=== PATIENT | female | born 1970 | race Caucasian/White ===

== ENCOUNTER 2017-08-20 14:24 | Emergency (ER) | payer BC, SELFPAY ==
[2017-08-20 15:00] VITALS: PULSE 103; RESP 16; TEMP 36.9; O2SAT 97; BMI 30.7
[2017-08-21 00:21] LABS: UTC Influenza A Antigen Negative (Negative); UTC Influenza B Antigen Positive (Negative)
== END 2017-08-20 20:55 | disposition home or self-care (01) ==
PROVIDERS: Emergency Provider Physician Assistant; Family Provider Internal Medicine Adolescent Medicine; PCP Internal Medicine Adolescent Medicine
DX: J11.1 Influenza due to unidentified influenza virus with other respiratory manifestations (principal)
CPT/HCPCS: 87276; 87804; 99202

== ENCOUNTER → 2017-09-14 10:29 | Outpatient (CLI) | payer BC, SELFPAY ==
[2017-09-14 11:46] LABS: Free T4 (Free Thyroxine) 1.51 ng/dl (0.76-1.46)
== END ==
PROVIDERS: PCP Internal Medicine Adolescent Medicine; Visit Provider Internal Medicine Endocrinology, Diabetes & Metabolism
DX: E03.9 Hypothyroidism, unspecified (principal)
CPT/HCPCS: 36415; 84439; 84443

== ENCOUNTER → 2017-11-01 09:01 | Outpatient (CLI) | payer BC, SELFPAY ==
[2017-11-01 09:52] LABS: Hemoglobin A1C 6.3 % (0.0-7.0)
[2017-11-01 09:57] LABS: Alanine Aminotransferase 92 U/L (12-78); Albumin Level 4.2 gm/dL (3.4-5.0); Albumin/Globulin Ratio 1.1 (1.1-1.8); Alkaline Phosphatase 107 U/L (46-116); Anion Gap 15.2 mEq/L (5-15); Aspartate Amino Transferase 50 U/L (15-37); Bilirubin,Total 0.5 mg/dL (0.2-1.0); Blood Urea Nitrogen 9 mg/dL (7-18); Calcium 9.1 mg/dL (8.5-10.1); Carbon Dioxide 27 mmol/L (21.0-32.0); Chloride 100 mmol/L (98-107); Creatinine,Serum 0.74 mg/dL (0.55-1.02); Estimated Glomerular Filt Rate 84 ml/min (>60); GFR (African American) 102 ML/MIN (>60); Globulin 3.7 gm/dl (1.3-3.2); Glucose 148 mg/dL (74-106); Potassium 3.2 mmoL/L (3.5-5.1); Sodium 139 mmol/L (136-145); Total Protein,Serum 7.9 gm/dL (6.4-8.2)
== END ==
PROVIDERS: Visit Provider Internal Medicine Adolescent Medicine
DX: E11.9 Type 2 diabetes mellitus without complications (principal)
CPT/HCPCS: 36415; 80053; 83036

== ENCOUNTER → 2017-11-17 17:16 | Outpatient (CLI) | payer BC, SELFPAY ==
[2017-11-17 19:01] LABS: Free T4 (Free Thyroxine) 1.16 ng/dl (0.76-1.46); Thyroid Stimulating Hormone 0.45 uIU/ml (0.358-3.740)
== END ==
PROVIDERS: Visit Provider Internal Medicine Endocrinology, Diabetes & Metabolism
DX: E03.9 Hypothyroidism, unspecified (principal)
CPT/HCPCS: 36415; 84439; 84443

== ENCOUNTER → 2017-12-13 09:13 | Outpatient (CLI) | payer BC, SELFPAY ==
[2017-12-13 10:19] LABS: Basophils # 0.1 K/mm3 (0-0.2); Basophils % 0.6 % (0.1-2.0); Eosinophils # 0.2 K/mm3 (0.0-0.4); Eosinophils % 2.2 % (0.1-12.0); Hematocrit 44.8 % (37.0-47.0); Hemoglobin 15.3 g/dL (12.2-16.2); Lymphocytes # 3.8 K/mm3 (0.7-4.5); Mean Corpuscular HGB Conc 34.2 g/dL (31.8-35.4); Mean Corpuscular Hemoglobin 30.4 pg (27.0-31.2); Mean Corpuscular Volume 88.8 fl (81-99); Monocytes # 0.5 K/mm3 (0.1-1.0); Monocytes % 5.4 % (1.7-9.3); Neutrophils # 4.1 K/mm3 (1.8-7.8); Neutrophils % 47.8 % (37.0-80.0); Platelet Count 261 K/mm3 (142-424); Red Blood Count 5.05 M/mm3 (4.20-5.40); Red Cell Distribution Width 12.7 % (11.5-17.5); White Blood Count 8.6 K/mm3 (4.8-10.8)
[2017-12-13 11:05] LABS: Anion Gap 12.5 mEq/L (5-15); Blood Urea Nitrogen 12 mg/dL (7-18); Carbon Dioxide 31 mmol/L (21.0-32.0); Chloride 99 mmol/L (98-107); Creatinine,Serum 0.82 mg/dL (0.55-1.02); Estimated Glomerular Filt Rate 75 ml/min (>60); Ferritin 183 ng/mL (8-388); GFR (African American) 91 ML/MIN (>60); Glucose 158 mg/dL (74-106); Potassium 3.5 mmoL/L (3.5-5.1); Sodium 139 mmol/L (136-145)
[2017-12-14 14:50] LABS: Folate 17.8 ng/mL (>3.0); Vitamin B12 784 pg/mL (232-1245)
== END ==
PROVIDERS: Visit Provider Nurse Practitioner Family
DX: R53.81 Other malaise (principal); R20.2 Paresthesia of skin
CPT/HCPCS: 36415; 80048; 82607; 82728; 82746; 85025

== ENCOUNTER → 2018-03-13 12:05 | Outpatient (CLI) | payer BC, SELFPAY ==
[2018-03-13 16:11] LABS: Free T4 (Free Thyroxine) 1.33 ng/dl (0.76-1.46); Thyroid Stimulating Hormone 1.94 uIU/ml (0.358-3.740)
== END ==
PROVIDERS: Visit Provider Internal Medicine Endocrinology, Diabetes & Metabolism
DX: E03.9 Hypothyroidism, unspecified (principal)
CPT/HCPCS: 36415; 84439; 84443

== ENCOUNTER → 2018-05-17 09:36 | Outpatient (CLI) | payer BC, SELFPAY ==
[2018-05-17 10:02] LABS: Basophils # 0.1 K/mm3 (0-0.2); Basophils % 0.8 % (0.1-2.0); Eosinophils # 0.2 K/mm3 (0.0-0.4); Hematocrit 43.4 % (37.0-47.0); Hemoglobin 14.3 g/dL (12.2-16.2); Lymphocytes % 39.5 K/mm3 (10-50); Mean Corpuscular HGB Conc 32.9 g/dL (31.8-35.4); Mean Corpuscular Volume 91.2 fl (81-99); Mean Platelet Volume 7.4 fl (7.4-10.4); Monocytes # 0.4 K/mm3 (0.1-1.0); Monocytes % 5.5 % (1.7-9.3); Neutrophils # 3.9 K/mm3 (1.8-7.8); Neutrophils % 51.3 % (37.0-80.0); Platelet Count 246 K/mm3 (142-424); Red Blood Count 4.76 M/mm3 (4.20-5.40); Red Cell Distribution Width 12.4 % (11.5-17.5); White Blood Count 7.6 K/mm3 (4.8-10.8)
[2018-05-17 10:39] LABS: Alanine Aminotransferase 76 U/L (12-78); Albumin Level 3.8 gm/dL (3.4-5.0); Albumin/Globulin Ratio 1.1 (1.1-1.8); Alkaline Phosphatase 107 U/L (46-116); Anion Gap 14.1 mEq/L (5-15); Aspartate Amino Transferase 37 U/L (15-37); Bilirubin,Total 0.5 mg/dL (0.2-1.0); Blood Urea Nitrogen 8 mg/dL (7-18); Carbon Dioxide 26 mmol/L (21.0-32.0); Chloride 104 mmol/L (98-107); Chol/HDL Ratio 5.5 (1-3.5); Cholesterol 213 mg/dL (140-200); Creatinine,Serum 0.78 mg/dL (0.55-1.02); Estimated Glomerular Filt Rate 79 ml/min (>60); Free Thyroxine Index 4.1 ug/dL (5.93-13.13); GFR (African American) 96 ML/MIN (>60); Globulin 3.4 gm/dl (1.3-3.2); Glucose 145 mg/dL (74-106); HDL Cholesterol 39 mg/dL (29-89); LDL Cholesterol 117 mg/dL (0-130); Potassium 4.1 mmoL/L (3.5-5.1); Sodium 140 mmol/L (136-145); T4 (Thyroxine) 11.4 ug/dl (4.7-13.3); Thyroid Stimulating Hormone 2.75 uIU/ml (0.358-3.740); Total Protein,Serum 7.2 gm/dL (6.4-8.2); Triglycerides 287 mg/dL (30-200); Triiodothryronine (T3) Uptake 36 % (31-39); VLDL Cholesterol 57 mg/dL (0-40)
[2018-05-18 17:27] LABS: Estradiol 116.9 pg/mL (.); FSH 7.3 mIU/mL (.); LH 14.9 mIU/mL (.)
[2018-05-18 17:30] LABS: Vitamin D 25 Hydroxy 27.5 ng/mL (30.0-100.0)
== END ==
PROVIDERS: PCP Internal Medicine Adolescent Medicine; Visit Provider Nurse Practitioner Obstetrics & Gynecology
DX: Z01.419 Encounter for gynecological examination (general) (routine) without abnormal findings (principal); N95.1 Menopausal and female climacteric states; E03.9 Hypothyroidism, unspecified
CPT/HCPCS: 36415; 80053; 80061; 82652; 82670; 83001; 83002; 84436; 84443; 84479; 85025

== ENCOUNTER → 2018-05-17 09:53 | Outpatient (CLI) | payer BC, SELFPAY | PROVIDERS: Family Provider Internal Medicine Adolescent Medicine; PCP Internal Medicine Adolescent Medicine; Visit Provider Family Medicine | DX: E11.9 Type 2 diabetes mellitus without complications (principal) | CPT/HCPCS: 97802 ==

== ENCOUNTER → 2018-07-30 12:51 | Outpatient (CLI) | payer BC, SELFPAY ==
--- NOTE | 2018-07-30 12:58 | CT_ITS ---
CT abdomen pelvis w con INDICATION: A left upper quadrant pain for years ITS.REASON: LLQ PAIN ORDERING PHYSICIAN: Leandro Rapp MD PATIENT AGE: 48 years COMPARISON: PROCEDURE: Oral Contrast: Enteric contrast was utilized. IV Contrast: 75 cc Isovue-370 IV. TECHNIQUE: Axial images obtained with sagittal and coronal reformats. All CT scans at the facility use one or more dose reduction, viz: automated exposure control, ma/kV adjustment per patient size (including targeted exams where dose is matched to indication, i.e. head), or iterative reconstruction technique. FINDINGS: The lung bases appear clear. No acute findings. Heart normal size. Liver appears normal. Gallbladder is been removed. No biliary ductal dilatation. Pancreas is moderate size throughout but no focal lesions. No significant change since 2013. The common duct is slightly generous upper normal size but this reflects postcholecystectomy changes. Kidneys. No urinary tract calculi nor obstruction. Normal enhancement. Ureters unremarkable. GI tract. Moderate stool seen throughout the colon. Diverticulosis most evident at the sigmoid colon. There are areas of upper normal wall thickness in the proximal sigmoid colon. Most likely likely lack of distention. But noted no acute diverticulitis evident. No free fluid in the abdomen or pelvis. No free air. The appendix is identified and appears normal at right lower quadrant. Osseous. Lower ribs appear intact. Lumbar spine intact with mild degenerative changes L5/S1. Thecal spurring and central disc bulge at that level. Mild facet hypertrophy. Pelvis. Uterus is been removed since 2013. Stranding and Numerous clips are seen at the pelvic basin. Likely reflect postsurgical change. I suspect the right ovary remains and most likely accounts for the 3 cm x 2 cm density at the superior right pelvis. Coronal image 45. There are some ring-enhancing areas here which likely reflect enhancing cyst.. The largest 15 mm size. Axial image 104 . IMPRESSION: 1. No acute findings abdomen nor pelvis 2. Diverticulosis most evident at the sigmoid colon and left colon. No diverticulitis.. Upper normal wall thickness descending colon and sigmoid most likely reflecting lack of distention 3. No findings at the left abdomen to account for the left upper quadrant pain.. 4.. Uterus is been removed since 2013.. . Right ovary appears to remain measuring up to 3 cm applied to the right superior right pelvic sidewall. This moderate size right ovary containing ring-enhancing areas which are most likely enhancing follicular cyst.. Largest rim-enhancing cyst measuring 1.5 cm. If f pain at right pelvis consider ultrasound 5. Appendix normal. Cholecystectomy. .
[2018-07-30 13:09] LABS: Blood Urea Nitrogen 11 mg/dL (7-18); Creatinine,Serum 0.84 mg/dL (0.55-1.02); Estimated Glomerular Filt Rate 73 ml/min (>60); GFR (African American) 88 ML/MIN (>60)
== END ==
PROVIDERS: Visit Provider Family Medicine
DX: R10.32 Left lower quadrant pain (principal)
CPT/HCPCS: 36415; 74177; 82565; 84520; Q9967

== ENCOUNTER → 2018-08-21 12:00 | Outpatient (CLI) | payer BC, SELFPAY ==
[2018-08-21 13:47] LABS: Alanine Aminotransferase 94 U/L (12-78); Albumin Level 3.8 gm/dL (3.4-5.0); Albumin/Globulin Ratio 1.2 (1.1-1.8); Alkaline Phosphatase 105 U/L (46-116); Anion Gap 13.8 mEq/L (5-15); Aspartate Amino Transferase 55 U/L (15-37); Bilirubin,Total 0.7 mg/dL (0.2-1.0); Blood Urea Nitrogen 6 mg/dL (7-18); Calcium 8.5 mg/dL (8.5-10.1); Carbon Dioxide 24 mmol/L (21.0-32.0); Chloride 103 mmol/L (98-107); Chol/HDL Ratio 5.7 (1-3.5); Cholesterol 216 mg/dL (140-200); Creatinine,Serum 0.77 mg/dL (0.55-1.02); Estimated Glomerular Filt Rate 80 ml/min (>60); Free Thyroxine Index 4.2 ug/dL (5.93-13.13); GFR (African American) 97 ML/MIN (>60); Globulin 3.3 gm/dl (1.3-3.2); Glucose 157 mg/dL (74-106); HDL Cholesterol 38 mg/dL (29-89); LDL Cholesterol 109 mg/dL (0-130); Potassium 3.8 mmoL/L (3.5-5.1); Sodium 137 mmol/L (136-145); T4 (Thyroxine) 11.4 ug/dl (4.7-13.3); Thyroid Stimulating Hormone 0.05 uIU/ml (0.358-3.740); Total Protein,Serum 7.1 gm/dL (6.4-8.2); Triglycerides 344 mg/dL (30-200); Triiodothryronine (T3) Uptake 37 % (31-39); VLDL Cholesterol 69 mg/dL (0-40)
[2018-08-21 14:23] LABS: Basophils # 0.1 K/mm3 (0-0.2); Basophils % 0.9 % (0.1-2.0); Eosinophils # 0.2 K/mm3 (0.0-0.4); Eosinophils % 3.2 % (0.1-12.0); Hematocrit 41.8 % (37.0-47.0); Hemoglobin 14.1 g/dL (12.2-16.2); Lymphocytes # 2.3 K/mm3 (0.7-4.5); Lymphocytes % 35.3 % (10-50); Mean Corpuscular HGB Conc 33.7 g/dL (31.8-35.4); Mean Corpuscular Volume 88.9 fl (81-99); Mean Platelet Volume 8.1 fl (7.4-10.4); Monocytes # 0.4 K/mm3 (0.1-1.0); Monocytes % 6.6 % (1.7-9.3); Neutrophils # 3.4 K/mm3 (1.8-7.8); Neutrophils % 53.9 % (37.0-80.0); Platelet Count 215 K/mm3 (142-424); Red Blood Count 4.71 M/mm3 (4.20-5.40); Red Cell Distribution Width 12.4 % (11.5-17.5); White Blood Count 6.4 K/mm3 (4.8-10.8)
[2018-08-22 10:32] LABS: Triiodothyronine (T3) Free 3.2 pg/mL (2.0-4.4)
[2018-08-22 19:56] LABS: Ferritin 271 ng/mL (8-388)
[2018-08-24 08:30] LABS: Iron 102 ug/dL (27-159); UIBC 244 ug/dL (131-425)
[2018-08-24 18:06] LABS: Iron Saturation 29 % (15-55)
== END ==
PROVIDERS: Visit Provider Nurse Practitioner Obstetrics & Gynecology
DX: D64.9 Anemia, unspecified (principal); E03.9 Hypothyroidism, unspecified; R53.82 Chronic fatigue, unspecified
CPT/HCPCS: 80053; 80061; 82728; 83540; 83550; 84436; 84443; 84479; 84481; 85025

== ENCOUNTER → 2018-08-22 18:32 | Outpatient (CLI) | payer BC, SELFPAY | PROVIDERS: Visit Provider Nurse Practitioner Obstetrics & Gynecology | DX: D64.9 Anemia, unspecified (principal); E03.9 Hypothyroidism, unspecified; R53.82 Chronic fatigue, unspecified | CPT/HCPCS: 82728; 83540; 83550 ==

== ENCOUNTER → 2018-10-22 15:50 | Outpatient (POV) | payer OTHER, BC, SELFPAY | PROVIDERS: Visit Provider Nurse Practitioner Acute Care | DX: Z00.00 Encounter for general adult medical examination without abnormal findings (principal) ==

== ENCOUNTER → 2018-11-14 12:51 | Outpatient (CLI) | payer BC, SELFPAY ==
[2018-11-14 14:23] LABS: Free Thyroxine Index 5.7 ug/dL (5.93-13.13); T4 (Thyroxine) 13.9 ug/dl (4.7-13.3); Thyroid Stimulating Hormone 0.01 uIU/ml (0.358-3.740); Triiodothryronine (T3) Uptake 41 % (31-39)
[2018-11-15 15:07] LABS: Triiodothyronine (T3) Free 4.6 pg/mL (2.0-4.4)
== END ==
PROVIDERS: Visit Provider Nurse Practitioner Obstetrics & Gynecology
DX: R53.82 Chronic fatigue, unspecified (principal)
CPT/HCPCS: 36415; 84436; 84443; 84479; 84481

== ENCOUNTER → 2019-03-22 14:38 | Outpatient (CLI) | payer BC, SELFPAY ==
--- NOTE | 2019-03-22 14:41 | XR_ITS ---
XR KUB HISTORY: ITS.REASON: RT FLANK PAIN ORDERING PHYSICIAN: Leandro Rapp MD PATIENT AGE: 49 years COMPARISON: None FINDINGS: The bowel gas pattern is unremarkable. No obvious obstruction.. Multiple pelvic calcifications are present most of which are likely related to phleboliths.. There is a small density overlying the upper and mid aspect of the right kidney at 2 mm and could represent a small stone. There are surgical clips in the right upper quadrant. IMPRESSION: Multiple pelvic calcifications which are nonspecific. Possible right nephrolithiasis
== END ==
PROVIDERS: PCP Family Medicine; Visit Provider Family Medicine
DX: R10.9 Unspecified abdominal pain (principal)
CPT/HCPCS: 74018

== ENCOUNTER → 2019-06-27 10:22 | Outpatient (CLI) | payer BC, SELFPAY ==
[2019-06-27 11:25] LABS: Basophils % 0.5 % (0.1-2.0); Eosinophils # 0.2 K/mm3 (0.0-0.4); Eosinophils % 2.2 % (0.1-12.0); Hematocrit 44.3 % (37.0-47.0); Hemoglobin 14.9 g/dL (12.2-16.2); Lymphocytes # 2.8 K/mm3 (0.7-4.5); Lymphocytes % 32.5 % (10-50); Mean Corpuscular HGB Conc 33.6 g/dL (31.8-35.4); Mean Corpuscular Hemoglobin 29.9 pg (27.0-31.2); Mean Corpuscular Volume 88.9 fl (81-99); Mean Platelet Volume 8.3 fl (7.4-10.4); Monocytes # 0.5 K/mm3 (0.1-1.0); Monocytes % 5.6 % (1.7-9.3); Neutrophils % 59.4 % (37.0-80.0); Platelet Count 244 K/mm3 (142-424); Red Blood Count 4.98 M/mm3 (4.20-5.40); Red Cell Distribution Width 12.4 % (11.5-17.5); White Blood Count 8.5 K/mm3 (4.8-10.8)
[2019-06-27 14:03] LABS: Alanine Aminotransferase 67 U/L (12-78); Albumin Level 3.9 gm/dL (3.4-5.0); Albumin/Globulin Ratio 1.1 (1.1-1.8); Alkaline Phosphatase 169 U/L (46-116); Aspartate Amino Transferase 28 U/L (15-37); Bilirubin,Total 0.6 mg/dL (0.2-1.0); Blood Urea Nitrogen 11 mg/dL (7-18); Carbon Dioxide 23 mmol/L (21.0-32.0); Chloride 102 mmol/L (98-107); Chol/HDL Ratio 5.1 (1-3.5); Cholesterol 197 mg/dL (140-200); Creatinine,Serum 0.67 mg/dL (0.55-1.02); Estimated Glomerular Filt Rate 94 ml/min (>60); Free Thyroxine Index 5.6 ug/dL (5.93-13.13); GFR (African American) 114 ML/MIN (>60); Globulin 3.4 gm/dl (1.3-3.2); Glucose 184 mg/dL (74-106); HDL Cholesterol 39 mg/dL (29-89); LDL Cholesterol 86 mg/dL (0-130); Sodium 136 mmol/L (136-145); T4 (Thyroxine) 14.8 ug/dl (4.7-13.3); Thyroid Stimulating Hormone 0.01 uIU/ml (0.358-3.740); Total Protein,Serum 7.3 gm/dL (6.4-8.2); Triglycerides 359 mg/dL (30-200); Triiodothryronine (T3) Uptake 38 % (31-39); VLDL Cholesterol 72 mg/dL (0-40)
[2019-06-28 21:14] LABS: Estradiol 204.4 pg/mL (.); FSH 6.8 mIU/mL (.); Triiodothyronine (T3) Free 4.2 pg/mL (2.0-4.4); Vitamin D 25 Hydroxy 21.7 ng/mL (30.0-100.0)
== END ==
PROVIDERS: Visit Provider Nurse Practitioner Obstetrics & Gynecology
DX: Z01.419 Encounter for gynecological examination (general) (routine) without abnormal findings (principal); E03.9 Hypothyroidism, unspecified; N95.1 Menopausal and female climacteric states; E55.9 Vitamin D deficiency, unspecified
CPT/HCPCS: 36415; 80053; 80061; 82652; 82670; 83001; 83002; 84436; 84443; 84479; 84481; 85025

== ENCOUNTER → 2019-07-22 06:15 | Outpatient (CLI) | payer BC, SELFPAY ==
--- NOTE | 2019-07-22 | CA_ITS ---
APPROVED REPORT Exam: Exercise Treadmill Technologist: Carmina Carney Ht: 5 ft 7 in Wt: 206 lbs BSA: 2.05 m2 HR: 74 bpm BP: 145/93 mmHg Indications: Abnormal ekg, Chest pain Medical History Medications: Levothyroxine,,,,, Diabetes med,,,,, Stress Test Details Test: Henrry HR Resting HR: 76 bpm Max Heart Rate (APMHR): 172 bpm Max HR Achieved: 154 bpm Target HR (85% APMHR): 146 bpm % of APMHR: 89 Recovery HR: 91 bpm BP Resting BP: 145.0/93.0 mmHg Max BP: 150.0/88.0 mmHg Recovery BP: 143.0/79.0 mmHg ECG Clinical Reason for Termination: Dyspnea Exercise duration: 09:00 min Highest Stage Achieved: Exercise capacity: 10.1 METs Stress ECG Conclusion patient exercised on a Henrry Protocol for 9 minutes to peak heart rate of 154 bpm ( target heart rate 146 bpm) without chest pain or arrhythmias. Baseline EKG is sinus with inferior STT abnormalities that were that were mildly exacerbated during stress before returning to baseline in recovery. Total METS acheived was 10.1 with peak blood pressure 161/88 mmHg. See the nuclear report for further information. Test Summary RECOVERY 04:00 0.0 0.0 100 . . . . REST . . . . . . . Standing REST 13:38 0.0 0.0 76 . 145/ 93 . . Stage 1 01:00 10.0 1.7 97 . . . . Stage 1 02:00 10.0 1.7 107 . . . . Stage 1 03:00 10.0 1.7 112 . 138/ 84 . . Stage 2 01:00 12.0 2.5 121 . . . . Stage 2 02:00 12.0 2.5 124 . . . . Stage 2 03:00 12.0 2.5 132 . 150/ 88 . . Stage 3 01:00 14.0 3.4 144 . . . . Stage 3 . . . . . . . Myoview Injected Stage 3 02:00 14.0 3.4 151 . . . . Stage 3 03:00 14.0 3.4 154 . . . Stop exercise at 09:00 RECOVERY 01:00 0.0 0.0 130 . . . . RECOVERY 02:00 0.0 0.0 109 . . . . RECOVERY 03:00 0.0 0.0 103 . . . . RECOVERY 04:00 0.0 0.0 100 . . . . RECOVERY 05:00 0.0 0.0 92 . . . . RECOVERY 05:31 0.0 0.0 92 . 143/ 79 . . Electronically signed by : Kings Cohn, 07/22/2019 19:53:08
--- NOTE | 2019-07-22 06:23 | NM_ITS ---
APPROVED REPORT Exam: Nuclear Stress Test Indication: Chest pain, Abnormal EKG, DM, High cholesterol, Family history Patient Location: Outpatient Stress Tech: Carmina Carney NM Tech:Kisha Cheung, ARRT, RT (R)(N) Ht: 5 ft 7 in Wt: 206 lbs Bra Size: 36C HR: 74 bpm BP: 145/93 mmHg BSA: 2.05 m2 BMI: 32.2 History: Chest pain, Abnormal EKG, DM, High cholesterol, Family history Procedure: Patient exercised on Henrry protocol 9:00 minutes and sec, resting heart rate 74 bpm, resting blood pressure 145/93 mmHg, with exercise maximum heart rate achived was 154 bpm which is Greater than 85 % of the maximum predicted heart rate and blood pressure was 150/88 mmHg. Test was stopped due to rt hip discomfort and SOA. Patient denied any complaint of chest pain. Patient has Good exercise capacity, achieved 10.1 METs of workload on treadmill, the blood pressure response to exercise was Abnormal. Electrocardiogram Resting electrocardiogram showed sinus rhythm, with exercise there is less than 1.[address] segment depression noted from the baseline EKG. The EKG portion of the exercise Myoview is negative for ischemia. Cardiac Stress and Resting SPECT Images: Cardiac Stress and Resting SPECT images were obtained using technetium 99m Myoview 31.3 mCi stress and 10.76 mCi at rest. Gated SPECT with analysis of segmental wall motion and calculation of the ejection fraction also done. Cardiac stress and resting SPECT images show uniform myocardial activity without segmental perfusion abnormality, computer derived ejection fraction is 59% with no regional wall motion abnormality, right ventricle is normal size and contractility. Conclusion: 1. The EKG portion of the exercise Myoview is negative for ischemia, patient has good exercise capacity achieved 10.1 mets of workload on treadmill, the blood pressure response to exercise was abnormal, there was no exercise-induced chest discomfort. 2. No scintigraphic evidence of reversible ischemia seen at this level of exercise, computer derived ejection fraction is 59% with no regional wall motion abnormality, left medical is normal size and contractility. 3. Likely normal exercise Myoview study except for abnormal blood pressure response to exercise. Electronically signed by : Kings Cohn, 07/22/2019 19:55:28
--- NOTE | 2019-07-22 07:07 | CA_ITS ---
APPROVED REPORT EXAM: Comprehensive 2D, Doppler, and color-flow Echocardiogram Sponsorship Manager: Ewelina Chua RDCS Ht: 5 ft 8 in Wt: 206lbs BSA: 2.07 BP: 118/72 mmHg Indications: Abnormal ECG, Chest Pain 2D Dimensions LVOT 1.96 cm (M/F) 1.5-2.5 M-Mode Dimensions RVDd 1.89 cm (0.9-2.6) LVDd 5.80 cm (3.5-5.7) LVDs 4.62 cm (3.5-5.7) IVSd 0.91 cm (0.6-1.1) PWd 0.80 cm (0.6-1.1) EF (Teich) 41.00% FS 20.30% EDV (Teich) 166.60 mL ESV (Teich) 98.30 mL LV Diastology E/A Ratio 1.05 Mitral Valve MV A Velocity 72.00 (40-130 cm/s) Left Ventricle Left atrium is qualitatively mildly enlarged, left ventricle is normal size, there is no left ventricular hypertrophy, visually estimated ejection fraction 55% with no regional wall motion abnormality. Diastolic parameters are inconclusive. Right Ventricle Right atrium and right ventricular normal size and contractility. Aortic Valve Aortic valve is grossly normal, there is no aortic stenosis aortic insufficiency. Mitral Valve Mitral valve is grossly normal, there is mild mitral regurgitation. Tricuspid Valve Tricuspid valve is grossly normal, there is mild tricuspid regurgitation, tricuspid regurgitation jet velocity is inadequate for calculation of the right ventricular systolic pressure. Pulmonic Valve Pulmonic valve is poorly visualized. Great Vessels Aortic root is normal size. Pericardium No significant pericardial effusion noted. Conclusion 1. Qualitatively mildly enlarged left atrium, normal left ventricular size, visually estimated ejection fraction 55% with no regional wall motion abnormality, diastolic parameters are inconclusive. 2. Mild mitral and tricuspid regurgitation. 3. No significant pericardial effusion noted. Electronically signed by : Kings Cohn, 07/22/2019 20:12:04
--- NOTE | 2019-07-22 08:21 | HMH.ITSHM ---
Current Home Medications as stated by this patient Francisca Cobb or field representative. []LEVOTHYROXINE NATURE THYROID DIABETES MED
== END ==
PROVIDERS: PCP Family Medicine; Visit Provider Family Medicine
DX: R94.31 Abnormal electrocardiogram [ECG] [EKG] (principal); R07.9 Chest pain, unspecified; E78.1 Pure hyperglyceridemia; E11.65 Type 2 diabetes mellitus with hyperglycemia; Z82.49 Family history of ischemic heart disease and other diseases of the circulatory system
CPT/HCPCS: 78452; 93017; 93306; A9502

== ENCOUNTER → 2019-07-23 08:19 | Outpatient (CLI) | payer BC, SELFPAY ==
--- NOTE | 2019-07-23 08:25 | MM_ITS ---
PROCEDURE: MM DIG SCREENING MAMM BI W/CAD Patient Age:49Y CLINICAL INDICATION: Routine Screening Mammogram No hormones. No new complaints Previous hysterectomy age 44 noted Family history: Mother breast cancer age 50. Paternal great aunts breast cancer COMPARISON: DIGMAMMS MAMMOGRAM SCREEN-INFORMATICS PHARMACIST N/C from 03/20/2008 DIGMAMMS MAMMOGRAM SCREEN-INFORMATICS PHARMACIST N/C from 03/20/2008 [facility] DIGITAL MAMM-SCREEN BILATERAL from 12/23/2011 D[facility]XUL DIG MAMM-DX UNILATERAL-LT from 06/29/2012 [facility] DIG MAMM-SCREEN the DAFNE from 07/17/2013 [facility] DIG MAMM-SCREEN DAFNE from 07/02/2015 [facility] DIG MAMM-SCREEN DAFNE W/CAD from 03/14/2017 TECHNIQUE: Standard CC and MLO images were obtained. R2 CAD reviewed. FINDINGS: There is subtle accentuation fibroglandular elements throughout both right and left breast on today's study.. This may reflect premenstrual status if ongoing cycles, and/or field seismologist mammogram technique. There is no history of exogenous hormones given Left breast: Recommend additional CC and MLO spot views along with full 90 degree view left breast of area X and Y. Area labeled X: Additional focal density seen, inferior left breast on today's MLO view-labeled X.. This measuring approximate 9 mm height 4 mm AP this was not apparent on previous studies.. There is some questionable corresponding areas of more evident density on today's cc and axillary CC view on which will benefit from spot views as well Area labeled Y and areaZ I believe or present on the 2015 MLO view. They slightly more evident and pronounced today, again possibly due to today's field seismologist technique.. However spot views should include these areas as well. On Right breast: Again suggestion of slight accentuation of fibroglandular elements when compared to previous studies. Which I suspect accounts for the slight accentuation of densities and fibroglandular elements anterior breast at the more anterior breast on both views. Suggest spot cc and MLO view along with full 90 degree view right breast to further support and confirm stability IMPRESSION: 1..Left breast: Recommend additional spot views and ultrasound left breast. -Small focal area nodularity inferior left breast 6 o'clock labeled X-this is main focus requiring spot views & ultrasound -other areas of minimal nodularity labeled Y and Z on MLO view, along with other vague possible corresponding areas of slight focal density on CC view will also also benefit from spot views; --then followed by ultrasound of entire left breast 2..Right breast:. Today's field seismologist film slightly accentuates what I believe are most likely stable fibroglandular elements but would suggest a spot cc and MLO view along with full 90 degree view right breast when patient returns BI-RAD Category: 0 Need Additional Imaging Evaluation FOLLOW-UP: IMM Immediate Follow-up Recommended Additional diagnostic mammogram views both breast particularly left breast; With subsequent left breast ultrasound (A letter has been sent to the patient regarding results of the study.) Dictated by: Helder Malik MD 07/26/2019 13:15 Electronically signed by Helder Malik MD in [place] 07/26/2019 13:15
--- NOTE | 2019-07-23 08:26 | US_ITS ---
PROCEDURE: US ABDOMEN LIMITED CLINICAL INDICATION: RUQ PAIN,hypertriglyceridemia Right upper pain COMPARISON: RUQ US RUQ-(ABD LTD)1ORGAN/QUAD/FU from 07/26/2017 FINDINGS: PANCREAS: Unremarkable. No obvious mass or abnormal fluid collection. No ductal dilatation LIVER: No focal liver lesions demonstrated. Homogeneous echogenicity. No intrahepatic biliary ductal dilatation evident. There is appropriate direction of blood flow within a non dilated portal vein RIGHT KIDNEY: Unremarkable. Normal size and echogenicity. No hydronephrosis GALLBLADDER: Status post cholecystectomy. No ductal dilatation IMPRESSION: Prior cholecystectomy otherwise negative Dictated by: Chidi Muñoz MD 07/23/2019 14:38 Electronically signed by Chidi Muñoz MD in [place] 07/23/2019 14:38
== END ==
PROVIDERS: PCP Family Medicine; Visit Provider Family Medicine
DX: Z12.31 Encounter for screening mammogram for malignant neoplasm of breast (principal)
CPT/HCPCS: 76705; 77067

== ENCOUNTER → 2019-08-05 10:07 | Outpatient (POV) | payer BC, SELFPAY | PROVIDERS: Visit Provider Nurse Practitioner Family | DX: Z00.00 Encounter for general adult medical examination without abnormal findings (principal) ==

== ENCOUNTER → 2019-08-13 12:53 | Outpatient (CLI) | payer BC, SELFPAY ==
--- NOTE | 2019-08-13 12:53 | US_ITS ---
PROCEDURE: MM DIG MAMM BI DX W/CAD Patient Age:49Y CLINICAL INDICATION: Dx Mammogram- Abnormal Mamm COMPARISON: [facility] DIGITAL MAMM-SCREEN BILATERAL from 12/23/2011 D[facility] DIG MAMM-DX UNILATERAL-LT from 06/29/2012 [facility] DIG MAMM-SCREEN DAFNE from 07/17/2013 [facility] DIG MAMM-SCREEN DAFNE from 07/02/2015 [facility] DIG MAMM-SCREEN DAFNE W/CAD from 03/14/2017 MM DIG SCREENING MAMM BI W/CAD from 07/23/2019 US BREAST LT COMPLETE from 08/13/2019 TECHNIQUE: . Right breast spot cc MLO and full 90 degree view . Left breast: 2Spot MLO views and CC view with full 90 degree view R2 CAD reviewed. . Subsequent complete left breast ultrasound including axillary survey FINDINGS: ====DIAGNOSTIC BILATERAL MAMMOGRAM with bilateral spot views:== Right mammogram: Spot views support stable features right breast. Follow-up 1 year on right recommended. Density superior right breast dissipate today's 90 degree view Left mammogram Additional views confirm nodular DENSITY LABELED X,. This located at 7 o'clock position inferior breast and was not seen on mammogram studies prior to July 2019 . This discrete small nodule labeled X persists all views today as well as on the recent screening study 07/23/2019 screening.-however no corresponding density is seen at inferior breast on today's subsequent ultrasound implying this is a solid nodule. Thus would recommend stereotactic biopsy for further evaluation. It measures up to 10.5 mm height maximally x 5 mm The other areas density question on July 23 mammogram seem to dissipate, or are stable and can be followed. Specifically the area Labeled Y on MLO view, appears to be stable density since at least 2014. This can be followed The area labeledZpreviously seems to dissipate as do other areas of density, but I would suggest follow-up left mammogram with left breast ultrasound 6 months to further evaluateZ and these other areas ====LEFT BREAST ULTRASOUND with axillary survey: == Survey of the entire breast including axillary survey performed. No prominent findings. Today's ultrasound only reveals a small benign-appearing cyst at central breast 3 o'clock measuring to 5.2 mm.. Otherwise unremarkable but this likely accounts for some of the minimal nodularity here seen on mammography No cyst or solid nodule correlate seen to correlate with the small new density at inferior breast seen on mammograms and labeled X. on viewing the images from the 6-8 o'clock position. We may consider briefly re-scanned 6-8 o'clock position with ultrasound to fully exclude small cyst targeted area prior proceeding with stereotactic IMPRESSION: LEFT BREAST: New nodular density inferior left breast the Labeled X-warrants stereotactic biopsy. No corresponding findings on ultrasound in this area today . Ultrasound only reveals only a small benign cyst central breast 3 o'clock noted Right breast.. No areas of concern follow-up in 1 year Additional spot views here today support stable right breast BI-RAD Category: 4 Supicious Abnormality- Biopsy Considered FOLLOW-UP: Biopsy Recommended ==Stereotactic biopsy left breast recommended: With follow-up left mammogram left breast ultrasound in 6 months subsequent to biopsy of density x (A letter has been sent to the patient regarding results of the study.) Dictated by: Helder Malik MD 08/20/2019 09:30 Electronically signed by Helder Malik MD in [place] 08/20/2019 09:30
== END ==
PROVIDERS: Visit Provider Nurse Practitioner Obstetrics & Gynecology
DX: R92.8 Other abnormal and inconclusive findings on diagnostic imaging of breast (principal)
CPT/HCPCS: 76641; 77066

== ENCOUNTER → 2019-08-26 10:50 | Outpatient (CLI) | payer BC, SELFPAY ==
[2019-08-26 12:24] LABS: Alanine Aminotransferase 58 U/L (12-78); Albumin Level 3.7 gm/dL (3.4-5.0); Albumin/Globulin Ratio 1.1 (1.1-1.8); Alkaline Phosphatase 165 U/L (46-116); Amylase 60 U/L (25-115); Anion Gap 13.1 mEq/L (5-15); Aspartate Amino Transferase 26 U/L (15-37); Bilirubin,Total 0.6 mg/dL (0.2-1.0); Blood Urea Nitrogen 12 mg/dL (7-18); Carbon Dioxide 26 mmol/L (21.0-32.0); Chloride 103 mmol/L (98-107); Creatinine,Serum 0.74 mg/dL (0.55-1.02); Estimated Glomerular Filt Rate 84 ml/min (>60); GFR (African American) 101 ML/MIN (>60); Globulin 3.3 gm/dl (1.3-3.2); Glucose 140 mg/dL (74-106); Lipase 160 u/L (73-393); Potassium 4.1 mmoL/L (3.5-5.1); Sodium 138 mmol/L (136-145)
== END ==
PROVIDERS: Visit Provider Nurse Practitioner Family
DX: R14.3 Flatulence (principal); R10.9 Unspecified abdominal pain; R14.0 Abdominal distension (gaseous); R94.5 Abnormal results of liver function studies
CPT/HCPCS: 36415; 80053; 82150; 83690

== ENCOUNTER → 2019-09-09 12:46 | Outpatient (POV) | payer BC, SELFPAY | PROVIDERS: Visit Provider Nurse Practitioner Family | DX: Z00.00 Encounter for general adult medical examination without abnormal findings (principal) ==

== ENCOUNTER → 2019-09-13 09:12 | Outpatient (CLI) | payer BC, SELFPAY ==
--- NOTE | 2019-09-13 09:14 | MR_ITS ---
PROCEDURE: MR ABDOMEN WO CON CLINICAL INDICATION: ABNORMAL LIVER FUNCTION, RT SIDED ABDOMINAL PAIN Right-sided abdominal pain, right upper quadrant pain, prior cholecystectomy. COMPARISON: ABDPELW CT abdomen pelvis w con from 07/30/2018 US ABDOMEN LIMITED from 07/23/2019 TECHNIQUE: Routine multiplanar multi echo sequences are performed without gadolinium enhancement.. MRCP sequences also performed. FINDINGS: The liver, spleen, adrenal glands, pancreas, and kidneys have an unremarkable appearance. There has been a prior cholecystectomy. The common bile duct and biliary radicles have an unremarkable appearance. No evidence of retained common duct stone, stricture, or mass. Common bile duct measures up to 8 mm mildly prominent but could be related to the physiologic changes of post cholecystectomy. No evidence of pancreatic ductal dilatation.. IMPRESSION: 1. Prior cholecystectomy. There is minimal ectasia of the common bile duct which could be related to physiologic changes of prior cholecystectomy. No common duct stones or other abnormalities evident Dictated by: Chidi Muñoz MD 09/16/2019 11:17 Electronically signed by Chidi Muñoz MD in [place] 09/16/2019 11:17
== END ==
PROVIDERS: PCP Family Medicine; Visit Provider Nurse Practitioner Family
DX: R10.9 Unspecified abdominal pain (principal); R94.5 Abnormal results of liver function studies; R14.0 Abdominal distension (gaseous); K58.0 Irritable bowel syndrome with diarrhea
CPT/HCPCS: 74181; 76376

== ENCOUNTER → 2019-09-18 09:28 | Outpatient (CLI) | payer BC, SELFPAY ==
--- NOTE | 2019-09-18 09:29 | MM_ITS ---
PROCEDURE: MM STEREOTACTIC LOC LT CLINICAL INDICATION: Suspicious left breast nodule. TECHNIQUE: The patient was given 1 mg of Xanax, Lortab 5 mg, and analgesia and minor sedation. The patient was placed on the stereotactic table and the abnormality was localized in the most appropriate projection. The breast was prepped in the routine manner, with sterile prep and the overlying skin anesthetized. A 3 to 4 mm skin incision was performed and the 9 gauge sorus vacuum-assisted core biopsy needle was advanced to the region of the calcification. Pre- and post fire images were obtained. The patient tolerated the procedure well without complications. Specimen was sent for pathologic analysis which should be forthcoming within 3 working days. Routine follow-up phone call to patient is to be performed as well. A tiny titanium nonferromagnetic MicroMark was positioned through the mammotome needle into the biopsy site. Pathology: Pseudoangiomatous stromal hyperplasia. Fibrocystic changes. No atypia, in situ or invasive carcinoma IMPRESSION: 1. Successful stereotactic vacuum-assisted core biopsy of the breast nodule s. 2. Successful placement of a titanium metal MicroMark. 3. Pathology shows PASH, no atypia. No in situ or invasive carcinoma 4. No noted complications. IMPRESSION: Successful stereotactic directed biopsy of the left breast showing benign findings. Recommend mammographic follow-up in 6 months. BREAST MAMMOGRAM: Postsurgical changes with clip in the medial aspect of the left breast in the area previous concern with that nodule no longer apparent.. There is evidence of soft tissue changes in the region of the biopsy was soft tissue gas and edema. 5. Adequate placement of the MicroMark clip postbiopsy. 6. Postbiopsy changes within the breast. Dictated by: Chidi Muñoz MD 09/28/2019 08:24 Electronically signed by Chidi Muñoz MD in [place] 09/28/2019 08:26
== END ==
PROVIDERS: PCP Family Medicine; Visit Provider Nurse Practitioner Obstetrics & Gynecology
DX: N63.24 Unspecified lump in the left breast, lower inner quadrant (principal)
CPT/HCPCS: 19081; 77065

== ENCOUNTER → 2019-10-30 13:56 | Outpatient (CLI) | payer BC, SELFPAY ==
[2019-10-30 17:11] LABS: T4 (Thyroxine) 12.4 ug/dl (5.53-11.0); Triiodothryronine (T3) Uptake 32 % (23.5-40.5)
[2019-10-30 17:24] LABS: Thyroid Stimulating Hormone 0.02 uIU/mL (0.465-4.68)
[2019-11-01 11:25] LABS: Estradiol 28.7 pg/mL (.); FSH 12.7 mIU/mL (.); LH 9.3 mIU/mL (.); Triiodothyronine (T3) Free 3.5 pg/mL (2.0-4.4)
== END ==
PROVIDERS: Visit Provider Nurse Practitioner Obstetrics & Gynecology
DX: N95.1 Menopausal and female climacteric states (principal); N95.9 Unspecified menopausal and perimenopausal disorder; R53.83 Other fatigue
CPT/HCPCS: 36415; 82670; 83001; 83002; 84436; 84443; 84479; 84481

== ENCOUNTER → 2019-12-03 14:12 | Outpatient (CLI) | payer BC, SELFPAY ==
[2019-12-03 15:35] LABS: Chloride 103 mmol/L (98-107); Potassium 3.8 mmoL/L (3.5-5.1); Sodium 138 mmol/L (136-145)
[2019-12-03 15:38] LABS: Alanine Aminotransferase 70 U/L (12-78); Albumin Level 4.3 g/dl (3.5-5.0); Albumin/Globulin Ratio 1.5 (1.1-1.8); Alkaline Phosphatase 161 U/L (38-126); Anion Gap 16.8 mEq/L (5-15); Aspartate Amino Transferase 66 U/L (14-36); Bilirubin,Total 0.8 mg/dl (0.2-1.3); Blood Urea Nitrogen 8 mg/dl (7-17); Calcium 9.6 mg/dl (8.4-10.2); Carbon Dioxide 22 mmol/L (22.0-30.0); Estimated Glomerular Filt Rate 107 ml/min (>60); GFR (African American) 129 ML/MIN (>60); Globulin 2.8 g/dL (1.3-3.2); Glucose 161 mg/dl (74-100); Total Protein,Serum 7.1 g/dl (6.3-8.2)
== END ==
PROVIDERS: Visit Provider Nurse Practitioner Family
DX: R94.5 Abnormal results of liver function studies (principal)
CPT/HCPCS: 36415; 80053

== ENCOUNTER → 2020-03-20 13:18 | Outpatient (CLI) | payer BC, SELFPAY ==
--- NOTE | 2020-03-20 13:18 | MM_ITS ---
PROCEDURE: MM DIG MAMM DX UNILAT LT CAD Digital Breast Tomosynthesis Included CLINICAL INDICATION: 6 month follow up on Lt. breast post mammotome biopsy with clip placement COMPARISON: MG MM DIG MAMM BI DX W/CAD from 08/13/2019 MG MM CLIP PLACEMENT LT from 09/18/2019 MG MM STEREOTACTIC LOC LT from 09/18/2019 TECHNIQUE: Standard CC and MLO images and 3D Tomosynthesis was obtained. R2 CAD reviewed. FINDINGS: Scattered fibroglandular densities are seen throughout the breast. There is no abnormal density or significant post biopsy scarring at the site of the metallic biopsy clip. This is confirmed with paul images. IMPRESSION: Fibrofatty parenchyma with no suspicious lesion or significant post biopsy scarring seen and recommend the patient continue with yearly screening mammography BI-RAD Category: 2 Benign Finding(s) FOLLOW-UP: 6M 6Month Follow-up to return to normal screening schedule (A letter has been sent to the patient regarding results of the study.) Dictated Dr. Cristian Murray MD 03/24/2020 08:14 Dr. Cristian Johnson MD in [place] 03/24/2020 08:14
== END ==
PROVIDERS: PCP Family Medicine; Visit Provider Surgery
DX: R92.8 Other abnormal and inconclusive findings on diagnostic imaging of breast (principal)
CPT/HCPCS: 77061; 77065; G0279

== ENCOUNTER → 2020-03-26 11:01 | Outpatient (CLI) | payer BC, SELFPAY ==
[2020-03-26 12:43] LABS: Coronavirus 19 IgG Antibody Negative (Negative); Coronavirus 19 IgM Antibody Negative (Negative)
== END ==
PROVIDERS: Visit Provider Internal Medicine Gastroenterology
DX: Z01.818 Encounter for other preprocedural examination (principal); R10.9 Unspecified abdominal pain; R14.0 Abdominal distension (gaseous); R94.5 Abnormal results of liver function studies
CPT/HCPCS: 36415; 86328

== ENCOUNTER 2020-03-27 11:28 | Day surgery (SDC) | payer BC, SELFPAY ==
[2020-03-20 14:11] VITALS: BMI 31.9
[2020-03-27 12:08] VITALS: BP 154/83; PULSE 67; RESP 18; TEMP 36.6; O2SAT 98
[2020-03-27 12:23] LABS: POC Glucose,Bedside 127 (70-110)
--- NOTE | 2020-03-27 13:10 | FL_ITS ---
PROCEDURE: FL ERCP CLINICAL INDICATION: abn liver function COMPARISON: No exams were available for comparison FINDINGS: Fluoroscopy time: 2 minutes and 32 seconds Images from the ERCP are submitted. Limited pancreatogram is unremarkable. Common bile duct was cannulated no obvious large common duct stones. Common bile duct is slightly prominent. Balloon catheter was then placed into the common bile duct after sphincterotomy. IMPRESSION: No gross choledocholithiasis apparent Dictated by: Chidi Muñoz MD 03/30/2020 11:32 Chidi Muñoz MD in [place] 03/30/2020 11:32
--- NOTE | 2020-03-27 13:59 | HMH.ANESCL ---
[facility] Anesthesia Checklist - Patient Identification Patient Identification: Arm Band, Verbal (Name & ) - Structural Data Admitted From: Home Planned Operative Procedure/s: ERCP Consent for Planned Operative Procedure(s) Verified: Yes Verified Documents: Surgical Consent, History and Physical - NPO Status Verified Time NPO: 23:00 - Chart Verification Results Verified: None - Additional verifications Anesthesia Reactions: No - Airway Assessment C-Spine Mobility Assessed: Yes (MP 3, TMD 3) TMJ Mobility Assessed: Yes Dentition: Good Dentition - Neurological Assessment Level of Consciousness: Awake, Alert, Appropriate, Follows Commands Hx Seizures: No Numbness or tingling in extremities: No - Anesthesia Plan Anesthesia Risk discussed: Yes Anesthesia Plan: Verified ASA Class: III Anesthesia Type: MAC [facility] History I have reviewed the patient's past medical history: Yes Medical History: Reports:: Depression, Diabetes Mellitus Type 2, Gastroesophageal Reflux Disease(GERD), Kidney Stones Denies:: Cancer, Diabetes Mellitus Type 1, Internal Pacemaker, Lung Disease, MRSA, Seizures *Have you ever received a pneumonia vaccine?: No *Have you received a flu vaccine this season?: No Other Medical History: Reports: Hypothyroidism Anesthesia experience/problems:: none Laterality Cases: Bilateral: Tonsillectomy Other Surgeries: Yes: Cholecystectomy, , Hysterectomy-Total. No: Pacemaker Amputation: No Fractures: No - *Social History Smoking Status: Never smoker Alcohol Intake: never Alcohol Intake Frequency:: holidays/special occasions only Substance Use Type: denies use *Occupational Status:: employed Housing: house Household Members: family *Travel in the last 8 weeks: None - Psychiatric History Pschychiatric History:: Reports:: Depression Family Hx:: Cancer, Diabetes, Hyperlipidemia, Hypertension BLANKET BINDER history: Spontaneous
--- NOTE | 2020-03-27 15:06 | HMH.PROC ---
[facility] Procedure Note Procedure Note:: ERCP procedure Report: Endoscopic retrograde cholangiopancreatography with biliary sphincterotomy and balloon extraction Endoscopist: Steven Mai II, MD Referring Physician: Leandro Rapp MD Date of Procedure: March 27, 2020 Equipment: Olympus 180 side viewing endoscope duodenoscope Sedation: MAC sedation Indication: Mrs. Cobb is a 50-year-old female with chronic IBS and diarrhea. The patient did have panendoscopy with me in August 2018 and had 10 colon polyps removed (tubular adenomas x9/hyperplastic polyp x1). Her EGD did show a Schatzki's ring that was dilated. She also had bile reflux gastropathy/reactive gastropathy of the stomach. The patient does report ongoing right upper quadrant abdominal pain. She also has had intermittent escalation of her alkaline phosphatase. The patient has had prior cholecystectomy. The right upper quadrant pain can radiate towards the back. She did have an MRCP that showed some ductular ectasia of the common bile duct with mild CBD dilation. She also has some abdominal bloating and bowel irregularity. The patient reports no history of pancreatitis. Procedure: Prior to the procedure, a history and physical exam was performed, and patient's medications and allergies were reviewed. The risks, benefits and alternatives of the sedation and procedure were discussed with the patient. All questions were answered and informed consent was obtained. The patient was brought to the fluoroscopic radiology room. Patient identification and proposed procedure were verified by the physician and the nurse. The patient was placed in a swimmer's position between left lateral decubitus and prone position and the scope was passed under direct vision. Throughout the procedure, the patient's blood pressure, pulse, and oxygen saturations were monitored continuously. The ERCP was accomplished without difficulty. The patient tolerated the procedure well. Findings: The scope was passed directly into the upper esophagus and advanced to the second portion of the duodenum. There was bile reflux with linear reactive gastropathy. There was mild esophageal dysmotility. The duodenum was normal. The ampulla was well visualized. Both the pancreatic duct and common bile duct were freely or selectively cannulated. A limited pancreatogram showed a normal pancreatic duct in the head, neck and body of the gland. There were no ductular ectasias or pancreatic strictures or pancreatic calcification/concretions or filling defects. Next, the common bile duct was selectively cannulated with a guidewire. The cholangiogram performed did show a 9 mm common bile duct with normal filling of the intrahepatic biliary system. There was very slow delayed drainage of contrast and bile into the duodenum. 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 There were no strictures or filling defects. Next, a biliary sphincterotomy was performed. There was excellent extravasation of bile and contrast with decompression of the biliary system. There were also flecks of yellow debris/minor choledocholithiasis. Since this was identified, a balloon was placed at the hilum of the biliary system/the bifurcation and swept through the biliary system with the balloon dilated to 9 mm. There was excellent decompression and flow of bile. The procedure was then ended. Impression: 1. 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 She should have clinical improvement with biliary sphincterotomy. We will also discuss additional dietary measures and treatment options.
[2020-03-27 15:12] VITALS: BP 133/76; PULSE 91; RESP 16; TEMP 36.8; O2SAT 98
[2020-03-27 15:22] VITALS: BP 135/84; PULSE 73; RESP 16; O2SAT 95
[2020-03-27 15:32] VITALS: BP 134/82; PULSE 71; RESP 16; O2SAT 98
[2020-03-27 15:42] VITALS: BP 141/79; PULSE 67; RESP 18; O2SAT 98
[2020-03-27 15:52] VITALS: BP 145/79; PULSE 65; RESP 18; O2SAT 98
[2020-03-27 17:31] LABS: POC Glucose,Bedside 95 (70-110)
== END 2020-03-27 15:52 | disposition home or self-care (01) ==
PROVIDERS: PCP Family Medicine; Visit Provider Internal Medicine Gastroenterology
PROC: (CPT 43262; principal; 2020-03-27 12:30)
DX: K58.0 Irritable bowel syndrome with diarrhea (principal); K80.51 Calculus of bile duct without cholangitis or cholecystitis with obstruction; K22.4 Dyskinesia of esophagus; K83.4 Spasm of sphincter of Oddi; E11.9 Type 2 diabetes mellitus without complications; E03.9 Hypothyroidism, unspecified; Z90.49 Acquired absence of other specified parts of digestive tract; Z88.1 Allergy status to other antibiotic agents; Z90.710 Acquired absence of both cervix and uterus; Z79.890 Hormone replacement therapy; Z79.899 Other long term (current) drug therapy
CPT/HCPCS: 43262; 43264; 74330; 82962

== ENCOUNTER → 2020-05-25 09:53 | Outpatient (POV) | payer BC, SELFPAY | PROVIDERS: Visit Provider Nurse Practitioner Family | DX: Z00.00 Encounter for general adult medical examination without abnormal findings (principal) ==

== ENCOUNTER → 2020-06-17 08:30 | Outpatient (CLI) | payer BC, SELFPAY ==
[2020-06-17 10:15] LABS: Coronavirus 19 IgG Antibody Negative (Negative); Coronavirus 19 IgM Antibody Negative (Negative)
== END ==
PROVIDERS: Visit Provider Internal Medicine Gastroenterology
DX: Z01.818 Encounter for other preprocedural examination (principal); Z13.810 Encounter for screening for upper gastrointestinal disorder; Z12.11 Encounter for screening for malignant neoplasm of colon
CPT/HCPCS: 36415; 86328

== ENCOUNTER 2020-06-19 08:21 | Day surgery (SDC) | payer BC, SELFPAY ==
[2020-06-12 13:42] VITALS: BMI 31.3
[2020-06-19 08:49] VITALS: BP 183/76; PULSE 75; RESP 16; O2SAT 96
[2020-06-19 09:03] LABS: POC Glucose,Bedside 176 (70-110)
[2020-06-19 09:47] VITALS: O2SAT 97
--- NOTE | 2020-06-19 10:11 | P.PCN_ITS ---
[facility] Procedure Note Procedure Note:: Colonoscopy Procedure Report: Colonoscopy with cold snare polypectomy Endoscopist: Steven Mai II, MD Referring physician: Leandro Rapp MD Date of Procedure: June 19, 2020 Equipment: Olympus 180 variable stiffness pediatric colonoscope Sedation: MAC sedation Indication: Mrs. Cobb is a 50-year-old female who is here for follow-up screening/surveillance colonoscopy secondary to a personal history of colon polyps. She did have a colonoscopy and August 2018 and had 10 colon polyps (tubular adenomas x9/hyperplastic polyp x1) removed. She does have a long history of IBS with diarrhea. She also has chronic right upper quadrant abdominal pain with elevated alkaline phosphatase. She has a history of sphincter of Oddi dysfunction which was corrected at the time of the ERCP in March 2020. She has had some improvement of her symptoms. She still gets right upper quadrant abdominal pain that responds some to dicyclomine. She does have a history of depression and did not feel comfortable with taking buspirone. The patient does take fiber Gummies daily. She reports no bloating, gassiness or change in bowel habits. She reports no rectal bleeding, weight loss or family history of colon cancer. Procedure: Prior to the procedure, a history and physical exam was performed, and patient's medications and allergies were reviewed. The risks, benefits and alternatives of the sedation and procedure were discussed with the patient. All questions were answered and informed consent was obtained. The patient was brought to the procedure room. Patient identification and proposed procedure were verified by the physician and the nurse. The patient was placed in a left lateral decubitus position and the scope was passed under direct vision. Throughout the procedure, the patient's blood pressure, pulse, and oxygen saturations were monitored continuously. The colonoscopy was accomplished without difficulty. The patient tolerated the procedure well. Findings: On digital rectal examination there was normal rectal tone. There were no external hemorrhoids. The colonoscope was introduced through the anal canal to the rectum and advanced to the cecum. The ileocecal valve and appendiceal orifice were identified. The scope was advanced a short distance into the ileum which appeared grossly normal. The scope was then withdrawn into the colon. The cecum, ascending and transverse colon and mucosa were grossly normal. There were 3 colon polyps (transverse x1 (8 mm), descending x1 (4 mm) and sigmoid x1 (3 mm)) which were removed via cold snare polypectomy. There were scattered diverticuli throughout the descending and sigmoid colon (LEFT colon). The rectum itself was normal. Upon retroflexion within the rectum there were grade 1-2 internal hemorrhoids. The preparation was excellent throughout with [place] Preparation Score of 9. The cecal time was 12 minutes. Impression: 1. Colonic polyps x3 2. Left-sided diverticulosis 3. Grade 1-2 internal hemorrhoids Plan: I will follow up the polyp pathology and recommend repeat colonoscopy again in 5 years based upon the present polyp histology as well as the patient's history of multiple adenomatous polyps prior to age 51. I would encourage continued dietary measures and fiber supplementation on a long-term daily maintenance basis.
[2020-06-19 10:12] VITALS: BP 102/72; PULSE 78; RESP 16; TEMP 36.3; O2SAT 96
[2020-06-19 10:24] VITALS: BP 152/87; PULSE 79; RESP 16; O2SAT 97
[2020-06-19 10:35] VITALS: BP 135/86; PULSE 64; RESP 16; O2SAT 98
[2020-06-19 11:13] VITALS: BP 135/80; PULSE 78; RESP 16; O2SAT 100
== END 2020-06-19 11:13 | disposition home or self-care (01) ==
LOC: OUTP 08:22
PROVIDERS: PCP Family Medicine; Visit Provider Internal Medicine Gastroenterology
PROC: 0DJD8ZZ Inspection of Lower Intestinal Tract, Via Natural or Artificial Opening Endoscopic (ICD-10-PCS; CPT 45378; principal; 2020-06-19 09:30)
DX: Z12.11 Encounter for screening for malignant neoplasm of colon (principal); K63.5 Polyp of colon; K57.30 Diverticulosis of large intestine without perforation or abscess without bleeding; K64.0 First degree hemorrhoids; Z86.010 Personal history of colon polyps; K58.0 Irritable bowel syndrome with diarrhea; E11.9 Type 2 diabetes mellitus without complications; F32.9 Major depressive disorder, single episode, unspecified; Z79.890 Hormone replacement therapy; Z79.899 Other long term (current) drug therapy
CPT/HCPCS: 45385; 82962

== ENCOUNTER → 2020-06-30 10:23 | Outpatient (CLI) | payer BC, SELFPAY ==
[2020-06-30 11:16] LABS: Basophils # 0.1 K/mm3 (0-0.2); Basophils % 0.8 % (0.1-2.0); Eosinophils # 0.2 K/mm3 (0.0-0.4); Eosinophils % 2.9 % (0.1-12.0); Hemoglobin 14.8 g/dL (12.2-16.2); Lymphocytes # 2.8 K/mm3 (0.7-4.5); Lymphocytes % 38.1 % (10-50); Mean Corpuscular HGB Conc 34.5 g/dL (31.8-35.4); Mean Corpuscular Hemoglobin 30.8 pg (27.0-31.2); Mean Corpuscular Volume 89.3 fl (81-99); Mean Platelet Volume 8.3 fl (7.4-10.4); Monocytes # 0.4 K/mm3 (0.1-1.0); Monocytes % 5.9 % (1.7-9.3); Neutrophils # 3.9 K/mm3 (1.8-7.8); Neutrophils % 52.3 % (37.0-80.0); Platelet Count 239 K/mm3 (142-424); Red Blood Count 4.82 M/mm3 (4.20-5.40); White Blood Count 7.5 K/mm3 (4.8-10.8)
[2020-06-30 11:49] LABS: Chloride 106 mmol/L (98-107); Potassium 4.2 mmoL/L (3.5-5.1); Sodium 138 mmol/L (136-145)
[2020-06-30 11:51] LABS: Blood Urea Nitrogen 7 mg/dl (7-17); Estimated Glomerular Filt Rate 106 ml/min (>60); GFR (African American) 129 ML/MIN (>60)
[2020-06-30 11:52] LABS: Alanine Aminotransferase 74 U/L (12-78); Albumin Level 4.4 g/dl (3.5-5.0); Albumin/Globulin Ratio 1.5 (1.1-1.8); Alkaline Phosphatase 183 U/L (38-126); Anion Gap 14.2 mEq/L (5-15); Aspartate Amino Transferase 47 U/L (14-36); Bilirubin,Total 0.5 mg/dl (0.2-1.3); Calcium 9.3 mg/dl (8.4-10.2); Carbon Dioxide 22 mmol/L (22.0-30.0); Cholesterol 210 mg/dl (140-200); Globulin 2.9 g/dL (1.3-3.2); Glucose 164 mg/dl (74-100); HDL Cholesterol 42 mg/dl (40-60); Total Protein,Serum 7.3 g/dl (6.3-8.2); Triglycerides 255 mg/dl (30-150); VLDL Cholesterol 51 mg/dL (0-40)
[2020-06-30 12:05] LABS: Direct LDL Cholesterol 80.05 mg/dL (100-129)
[2020-06-30 12:10] LABS: Triiodothryronine (T3) Uptake 34 % (23.5-40.5)
[2020-06-30 12:11] LABS: Free Thyroxine Index 4.6 ug/dL (5.93-13.13); T4 (Thyroxine) 13.5 ug/dl (5.53-11.0)
[2020-06-30 12:25] LABS: Thyroid Stimulating Hormone < 0.02 uIU/mL (0.465-4.68)
== END ==
PROVIDERS: Visit Provider Nurse Practitioner Obstetrics & Gynecology
DX: Z01.419 Encounter for gynecological examination (general) (routine) without abnormal findings (principal); E03.9 Hypothyroidism, unspecified; R53.82 Chronic fatigue, unspecified
CPT/HCPCS: 36415; 80053; 80061; 84436; 84443; 84479; 85025

== ENCOUNTER → 2020-07-27 09:57 | Outpatient (CLI) | payer BC, SELFPAY ==
--- NOTE | 2020-07-27 09:57 | MM_ITS ---
PROCEDURE: MM DIG SCREENING MAMM BI W/CAD Digital Breast Tomosynthesis Included CLINICAL INDICATION: screening There is a history of breast cancer in patient's mother and paternal great aunts and paternal cousins. There has been a previous biopsy left breast for benign disease. COMPARISON: MG MM DIG MAMM BI DX W/CAD from 08/13/2019 MG MM CLIP PLACEMENT LT from 09/18/2019 MG MM STEREOTACTIC LOC LT from 09/18/2019 MG MM DIG MAMM DX UNILAT LT CAD from 03/20/2020 TECHNIQUE: Standard CC and MLO images and 3D Tomosynthesis was obtained. R2 CAD reviewed. FINDINGS: The breasts are composed primarily of fat with scattered fibroglandular densities in both breast. There is a biopsy clip inferior portion left breast. CAD markings were reviewed with no suspicious abnormality noted. There are no suspicious microcalcifications. IMPRESSION: Fibrofatty parenchyma with no suspicious lesions seen BI-RAD Category: 2 Benign Finding(s) FOLLOW-UP: 1YR 1 Year Follow-up (A letter has been sent to the patient regarding results of the study.) Dictated by: Dr. Cristian Johnson MD 07/27/2020 15:12 Dr. Cristian Johnson MD in [place] 07/27/2020 15:12
== END ==
PROVIDERS: PCP Family Medicine; Visit Provider Surgery
DX: Z12.31 Encounter for screening mammogram for malignant neoplasm of breast (principal)
CPT/HCPCS: 77063; 77067

== ENCOUNTER → 2020-11-23 08:34 | Outpatient (POV) | payer BC, SELFPAY | PROVIDERS: Visit Provider Nurse Practitioner Family | DX: Z00.00 Encounter for general adult medical examination without abnormal findings (principal) ==

== ENCOUNTER → 2021-01-19 10:33 | Outpatient (CLI) | payer BC, SELFPAY ==
[2021-01-19 12:46] LABS: T4 (Thyroxine) 12.2 ug/dl (5.53-11.0)
[2021-01-19 13:00] LABS: Thyroid Stimulating Hormone 0.04 uIU/mL (0.465-4.68)
[2021-01-19 20:20] LABS: Free Thyroxine Index 3.9 ug/dL (5.93-13.13); Triiodothryronine (T3) Uptake 32 % (23.5-40.5)
[2021-01-20 09:46] LABS: Triiodothyronine (T3) Free 3.4 pg/mL (2.0-4.4)
== END ==
PROVIDERS: Visit Provider Nurse Practitioner Obstetrics & Gynecology
DX: E03.9 Hypothyroidism, unspecified (principal); R53.82 Chronic fatigue, unspecified; R53.83 Other fatigue
CPT/HCPCS: 36415; 84436; 84443; 84479; 84481

== ENCOUNTER → 2021-03-08 09:26 | Outpatient (POV) | payer BC, SELFPAY | PROVIDERS: Visit Provider Nurse Practitioner Family | DX: Z00.00 Encounter for general adult medical examination without abnormal findings (principal) ==

== ENCOUNTER → 2021-08-20 11:55 | Outpatient (CLI) | payer BC, SELFPAY ==
[2021-08-20 12:37] LABS: Basophils # 0.2 K/mm3 (0-0.2); Eosinophils # 0.3 K/mm3 (0.0-0.4); Eosinophils % 3.9 % (0.1-12.0); Hematocrit 47.1 % (37.0-47.0); Hemoglobin 15.3 g/dL (12.2-16.2); Lymphocytes # 2.9 K/mm3 (0.7-4.5); Lymphocytes % 35.7 % (10-50); Mean Corpuscular HGB Conc 32.4 g/dL (31.8-35.4); Mean Corpuscular Volume 95.7 fl (81-99); Mean Platelet Volume 8.7 fl (7.4-10.4); Monocytes # 0.4 K/mm3 (0.1-1.0); Monocytes % 4.6 % (1.7-9.3); Neutrophils # 4.3 K/mm3 (1.8-7.8); Neutrophils % 53.9 % (37.0-80.0); Platelet Count 225 K/mm3 (142-424); Red Blood Count 4.92 M/mm3 (4.20-5.40); Red Cell Distribution Width 12.7 % (11.5-17.5)
[2021-08-20 13:41] LABS: Alanine Aminotransferase 37 U/L (12-78); Albumin Level 4.5 g/dl (3.5-5.0); Albumin/Globulin Ratio 1.6 (1.1-1.8); Alkaline Phosphatase 143 U/L (38-126); Anion Gap 13.1 mEq/L (5-15); Aspartate Amino Transferase 34 U/L (14-36); Bilirubin,Total 0.7 mg/dl (0.2-1.3); Blood Urea Nitrogen 8 mg/dl (7-17); Calcium 9.3 mg/dl (8.4-10.2); Carbon Dioxide 25 mmol/L (22.0-30.0); Chloride 104 mmol/L (98-107); Chol/HDL Ratio 5.3 (1-3.5); Cholesterol 224 mg/dl (140-200); Estimated Glomerular Filt Rate 76 ml/min (>60); GFR (African American) 92 ML/MIN (>60); Globulin 2.8 g/dL (1.3-3.2); Glucose 131 mg/dl (74-100); HDL Cholesterol 42 mg/dl (40-60); Potassium 4.1 mmoL/L (3.5-5.1); Sodium 138 mmol/L (136-145); Total Protein,Serum 7.3 g/dl (6.3-8.2); Triglycerides 196 mg/dl (30-150); VLDL Cholesterol 39 mg/dL (0-40)
[2021-08-20 13:52] LABS: Direct LDL Cholesterol 118.71 mg/dL (100-129)
[2021-08-20 13:57] LABS: Free Thyroxine Index 3.3 ug/dL (5.93-13.13); T4 (Thyroxine) 10.5 ug/dl (5.53-11.0); Triiodothryronine (T3) Uptake 31 % (23.5-40.5)
== END ==
PROVIDERS: PCP Family Medicine; Visit Provider Nurse Practitioner Obstetrics & Gynecology
DX: R53.82 Chronic fatigue, unspecified (principal); R53.83 Other fatigue; L65.9 Nonscarring hair loss, unspecified; Z01.419 Encounter for gynecological examination (general) (routine) without abnormal findings
CPT/HCPCS: 36415; 80053; 80061; 84436; 84443; 84479; 85025

== ENCOUNTER → 2021-09-18 12:29 | Outpatient (CLI) | payer BC, SELFPAY | PROVIDERS: Visit Provider Nurse Practitioner | DX: U07.1 COVID-19 (principal) | CPT/HCPCS: C9803; U0003; U0005 ==

== ENCOUNTER 2022-03-10 14:25 | Emergency (ER) | payer BC, SELFPAY ==
[2022-03-10 15:27] VITALS: BP 140/84; PULSE 91; RESP 18; TEMP 36.7; O2SAT 98; BMI 32.1
--- NOTE | 2022-03-10 15:42 | HMH.EDUTC ---
[facility] – [place] Disposition Clinical Impression: Viral syndrome Disposition: Home, Self-Care Condition on Discharge: Good Instructions: Sore Throat, Cough, DI for Viral Syndrome Additional Instructions: *Monitor Temp, Over the counter Motrin or Tylenol as directed/as needed Tylenol every 4 hours and Motrin every 6 hours (as long as your family doctor has told you that you can take it) for fever or pain. and straight to ER if unable to lower temp less than 101.0 after medication given *Warm salt water gargles may help to soothe the throat *Throat Lozenges *Warm fluids like tea with honey may help to soothe the throat *Sleep elevated *Humidifier/Vaporizer Follow up IMMEDIATELY for new or worsening symptoms or no Noticeable improvement over the next 48-72 hours. 911 for difficulty breathing or swallowing You were tested for today for COVID19 your test result should be back in the next 24-48 hours, you may check your results on the [facility] My Health portal Make sure to take your Vitamins Vit. C Vit D and Zinc if you can take them Prescriptions: Benzonatate [Benzonatate 100mg cap] 100 mg PO Q8HP PRN #30 cap PRN Reason: Cough Transmission [facility]: [id number] Referrals: Leandro Rapp MD [Primary Care Provider] - As needed Forms: Work/School Release Time of Disposition: 16:06 Medical Decision Making - Christiano Inquiry Pt receiving controlled substance: No Christiano was queried for this patient: No Vital Signs: 03/10/22 15:27 03/10/22 16:14 Temperature 98.1 F 98.1 F Temperature Source Oral Oral Pulse Rate 91 H Pulse Rate [Radial] 91 H Respiratory Rate 18 18 Blood Pressure 140/84 Blood Pressure [Right Arm] 140/84 Blood Pressure Mean [Right Arm] 102 Blood Pressure Source Automatic Cuff Blood Pressure Source [Right Arm] Automatic Cuff Blood Pressure Position Sitting Blood Pressure Position [Right Arm] Sitting 02 Sat by Pulse Oximetry 98 Oxygen Delivery Method Room Air Room Air - Lab Data Lab results reviewed: Yes: I reviewed the patient's lab results. Lab Results 03/10/22 15:26: Urine Color Yellow, Urine Appearance Clear, Urine pH 5.0, Ur Specific [place] 1.030, Urine Protein Negative, Urine Glucose (UA) 850, Urine Ketones Trace, Urine Blood Negative, Urine Nitrate Negative, Urine Bilirubin Negative, Urine Urobilinogen 0.2, Ur Leukocyte Esterase Negative [facility] – [place] HPI - General Stated complaint: chest congestion, cough, sinus pressure Time Seen by Provider: 03/10/22 15:42 Mode of Arrival: Ambulatory Source of Information: Patient Description of Symptoms (Recalled from Triage Doc. by RN): EAR PRESSURE, CHEST COGESTION, LABORED BREATHING, SNEEZING, BLADDER PAIN AND COUGHING X2 DAYS HEENT Symptoms (Recalled from RN notes): Yes Resp Symptoms (Recalled from RN notes): Yes Skin Symptoms (Recalled from RN notes): No MS Symptoms (Recalled from RN notes): No Functional Status (Recalled from RN notes): NA - History of Present Illness Provider Complaint: Patient states that her son had a positive home test on Monday and she has take an at home test and it was positive States that since then she has started having nasal congestion, cough, pressure in her ears and feels a little SOA at times when her nose is stopped up States that she also had frequency so she wanted to get her urine checked too - Related Data Home Medications Medication Instructions Recorded Confirmed glipizide 10 mg tablet, extended 10 mg PO tab 06/30/20 08/20/21 release 24 hr [id number]-[id number] 1 cap PO BID 06/30/20 08/20/21 36,000-114,000-180,000 unit capsule,delay rel dextroamphetamine-amphetamine ER cap PO 08/20/21 08/20/21 15 mg 24hr capsule,extend release Previous Rx's Medication Instructions Recorded estradiol 0.1 mg/24 hr semiweekly 1 patch TOPICAL ONCE #24 patch 08/30/21 transdermal patch levothyroxine 75 mcg tablet 75 mcg PO DAILY #90 tab 08/30/21 thyroid (pork) 60 mg tablet 6
[2022-03-10 15:58] LABS: Apearance,Urine Clear (Clear); Bilirubin,Urine Negative (Negative); Blood, Urine Negative (Negative); Color,Urine Yellow (Yellow); Glucose,Urine (UA) 850 (Negative); Ketones,Urine TRACE (Negative); Protein,Urine Negative (Negative)
[2022-03-10 15:59] LABS: UTC Leukocyte Esterase,Urine Negative (Negative); UTC Nitrate,Urine Negative (Negative); Urobilinogen,Urine 0.2 EU/dl (0.2)
[2022-03-10 16:14] VITALS: BP 140/84; PULSE 91; RESP 18; TEMP 36.7; O2SAT 99
== END 2022-03-10 16:19 | disposition home or self-care (01) ==
PROVIDERS: Emergency Provider Nurse Practitioner; PCP Family Medicine
DX: U07.1 COVID-19 (principal)
CPT/HCPCS: 81003; 99212; C9803; G0463; U0003; U0005

== ENCOUNTER → 2023-02-03 07:43 | Outpatient (CLI) | payer BC, SELFPAY ==
--- NOTE | 2023-02-03 08:17 | US_ITS ---
FINAL REPORT CLINICAL HISTORY: PAIN FINDINGS: RIGHT UPPER QUADRANT ULTRASOUND Sonographic images of the right upper quadrant were obtained. The pancreas is partially obscured. There is fatty infiltration of the liver. The gallbladder is surgically absent. The common duct is normal measuring 3 mm. Limited images of the right kidney are normal. IMPRESSION: Fatty liver. Reviewed, Interpreted and Dictated by Benjamin Sanchez MD Transcribed by Nneka Meek Authenticated and [facility]
[2023-02-03 09:30] LABS: Basophils # 0.1 K/mm3 (0-0.2); Basophils % 0.7 % (0.1-2.0); Eosinophils # 0.2 K/mm3 (0.0-0.4); Eosinophils % 2.9 % (0.1-12.0); Hematocrit 44.8 % (37.0-47.0); Hemoglobin 14.8 g/dL (12.2-16.2); Lymphocytes # 3.2 K/mm3 (0.7-4.5); Lymphocytes % 45.8 % (10-50); Mean Corpuscular Hemoglobin 28.9 pg (27.0-31.2); Mean Corpuscular Volume 87.5 fl (81-99); Mean Platelet Volume 8.9 fl (7.4-10.4); Monocytes # 0.4 K/mm3 (0.1-1.0); Monocytes % 5.4 % (1.7-9.3); Neutrophils # 3.1 K/mm3 (1.8-7.8); Neutrophils % 45.2 % (37.0-80.0); Platelet Count 216 K/mm3 (142-424); Red Blood Count 5.12 M/mm3 (4.20-5.40); Red Cell Distribution Width 12.8 % (11.5-17.5); White Blood Count 6.9 K/mm3 (4.8-10.8)
[2023-02-03 10:10] LABS: Alanine Aminotransferase 43 U/L (12-78); Albumin Level 4.2 g/dl (3.5-5.0); Albumin/Globulin Ratio 1.4 (1.1-1.8); Alkaline Phosphatase 179 U/L (38-126); Amylase 104 U/L (30-110); Anion Gap 16.3 mEq/L (5-15); Aspartate Amino Transferase 38 U/L (14-36); Bilirubin,Total 0.5 mg/dl (0.2-1.3); Blood Urea Nitrogen 9 mg/dl (7-17); Calcium 8.9 mg/dl (8.4-10.2); Carbon Dioxide 25 mmol/L (22.0-30.0); Chloride 103 mmol/L (98-107); Estimated Glomerular Filt Rate 88 ml/min (>60); GFR (African American) 107 ML/MIN (>60); Globulin 2.9 g/dL (1.3-3.2); Glucose 153 mg/dl (74-100); Lipase 556 U/L (23-300); Potassium 4.3 mmoL/L (3.5-5.1); Sodium 140 mmol/L (136-145); Total Protein,Serum 7.1 g/dl (6.3-8.2)
== END ==
PROVIDERS: PCP Family Medicine; Visit Provider Nurse Practitioner Family
DX: R10.11 Right upper quadrant pain (principal); K30 Functional dyspepsia; K58.0 Irritable bowel syndrome with diarrhea; K83.8 Other specified diseases of biliary tract; R19.4 Change in bowel habit
CPT/HCPCS: 36415; 76705; 80053; 82150; 83690; 85025

== ENCOUNTER → 2023-02-23 07:55 | Outpatient (CLI) | payer BC, SELFPAY ==
--- NOTE | 2023-02-23 07:58 | MR_ITS ---
FINAL REPORT TECHNIQUE: MRI abdomen without contrast, using 3D reconstructions for the biliary tree. CLINICAL HISTORY: right upper quadrant ABDOMINAL PAIN. nausea. COMPARISON: 09/13/2019 FINDINGS: Multiplanar MR imaging of the abdomen was performed without contrast. 3D reconstructions were obtained to evaluate the bile ducts and pancreatic duct. There is mild biliary ductal dilatation, the common hepatic duct measuring 7 mm in diameter, likely change postcholecystectomy. This is unchanged since the prior MRI of 2019. No evidence of biliary stricture or biliary stone is seen. Images of the liver reveal no evidence of mass. No other mass or adenopathy is identified. IMPRESSION: The patient is postcholecystectomy. There is mild biliary duct dilatation, the common hepatic duct measuring 7 mm, likely postcholecystectomy change. No significant change is noted since the prior MRI of 2019. 3D images fail to reveal any evidence of stricture or stone in the biliary tree. Reviewed, Interpreted and Dictated by Sourav Monroe III, MD Transcribed by Danielle Quinonez Authenticated and [facility]
== END ==
PROVIDERS: PCP Family Medicine; Visit Provider Nurse Practitioner Family
DX: R10.11 Right upper quadrant pain (principal); K83.8 Other specified diseases of biliary tract
CPT/HCPCS: 74181; 76376

== ENCOUNTER 2023-02-25 12:34 | Emergency (ER) | payer BC, SELFPAY ==
[2023-02-25 12:35] VITALS: BP 166/89; PULSE 73; RESP 18; TEMP 36.6; O2SAT 98; BMI 30.7
--- NOTE | 2023-02-25 12:51 | EXP.UTC ---
Discharge Plan Disposition Patient Disposition: Home, Self-Care Prescriptions Prescriptions: No Action glipizide 10 mg tablet extended release 24hr 10 mg PO Creon 36,000-114,000- 180,000 unit capsule,delayed release(DR/EC) 1 cap PO BID PRN Rx Instructions: administer with meals and/or snacks dextroamphetamine-amphetamine 15 mg capsule,extended release 24hr PO omeprazole 20 mg capsule,delayed release(DR/EC) 20 mg PO DAILY PRN dicyclomine 10 mg capsule 10 mg PO BID PRN vitamin B complex [B Complex-Vitamin B12] Tablet 1 tab PO DAILY cholecalciferol (vitamin D3) 50 mcg (2,000 unit) capsule 50 mcg PO DAILY Fiber Gummies 2 gram tablet,chewable PO DAILY thiamine HCl (vitamin B1) 100 mg tablet 100 mg PO DAILY cannabidiol 100 mg/mL solution PO DAILY levothyroxine [Euthyrox] 75 mcg tablet 75 mcg PO DAILY Qty: 90 3RF thyroid (pork) 60 mg tablet 60 mg PO DAILY Qty: 90 3RF estradiol [Brianna] 0.1 mg/24 hr patch semiweekly See Rx Instructions .ROUTE .COMPLEX Qty: 24 3RF Dose Instruction: APPLY 1 PATCH TOPICALLY TWICE A WEEK Rx Instructions: APPLY 1 PATCH TOPICALLY TWICE A WEEK fluconazole 150 mg tablet 150 mg PO Q3D Qty: 2 2RF Referrals Follow up/Referrals: Leandro Rapp MD [Primary Care Provider] - See instructions Activity Restrictions/Add. Instructions Additional Instructions/Restrictions: Please keep your follow-up with Dr. Rapp as previously instructed and return to the emergency part with any worsening symptoms. Clinical Impressions Clinical Impression: Abdominal pain, Yeast infection Instructions Patient Instructions: DI for Acute Abdominal Pain Discharge ED Provider: Tyrell Bull [facility] [place] HPI <Mitch Soliz APRN - Last Filed: 03/02/23 20:11> General Chief complaint: Abdominal Pain Stated complaint: diarrhea - stomach pain Time Seen by Provider: 02/25/23 12:51 Related Data Home Medications Medication Instructions Recorded Confirmed glipizide 10 mg tablet, extended 10 mg PO 06/30/20 08/30/22 release 24 hr dextroamphetamine-amphetamine ER cap PO 08/20/21 08/30/22 15 mg 24hr capsule,extend release cannabidiol 100 mg/mL oral solution PO DAILY 08/31/22 08/31/22 cholecalciferol (vitamin D3) 50 50 mcg PO DAILY 08/31/22 mcg (2,000 unit) capsule dicyclomine 10 mg capsule 10 mg PO BID PRN 08/31/22 inulin 2 gram chewable tablet g PO DAILY 08/31/22 (Fiber Gummies) [id number]-rdeosnpu-bmwqeyy 1 cap PO BID PRN 08/31/22 36,000-114,000-180,000 unit capsule,delay rel (Creon) omeprazole 20 mg capsule,delayed 20 mg PO DAILY PRN 08/31/22 release thiamine HCl (vitamin B1) 100 mg 100 mg PO DAILY 08/31/22 tablet vitamin B complex (B 1 tab PO DAILY 08/31/22 Complex-Vitamin B12 tablet) Previous Rx's Medication Instructions Recorded levothyroxine 75 mcg tablet 75 mcg PO DAILY #90 tabs 04/22/22 (Euthyrox) thyroid (pork) 60 mg tablet 60 mg PO DAILY #90 tabs 04/22/22 estradiol 0.1 mg/24 hr semiweekly See Rx Instructions .Route 07/26/22 transdermal patch (Brianna) .COMPLEX #24 patches fluconazole 150 mg tablet 150 mg PO Q3D 2 doses #2 tabs 02/19/23 Allergies Allergy/AdvReac Type Severity Reaction Status Date / Time doxycycline Allergy Unknown Verified 08/31/22 14:42 [facility] <Mitch Soliz APRN - Last Filed: 03/02/23 20:11> [facility] Disclaimer: The information contained in this section may have been updated after the patient was seen, as this information can be updated by other users. Surgical History History of abdominoplasty History of section History of cholecystectomy History of hysterectomy History of surgical removal of ganglion cyst History of tonsillectomy and adenoidectomy Family History Mother Diabetes Cancer, Onset Age: 51
[2023-02-25 14:00] VITALS: BP 164/107; BP 173/104; PULSE 70; PULSE 75; RESP 16; RESP 18; TEMP 36.6; O2SAT 98; O2SAT 99; BMI 30.6
--- NOTE | 2023-02-25 14:28 | HMH.EDGENADL ---
Discharge Plan Disposition Patient Disposition: Home, Self-Care Prescriptions Prescriptions: No Action glipizide 10 mg tablet extended release 24hr 10 mg PO Creon 36,000-114,000- 180,000 unit capsule,delayed release(DR/EC) 1 cap PO BID PRN Rx Instructions: administer with meals and/or snacks dextroamphetamine-amphetamine 15 mg capsule,extended release 24hr PO omeprazole 20 mg capsule,delayed release(DR/EC) 20 mg PO DAILY PRN dicyclomine 10 mg capsule 10 mg PO BID PRN vitamin B complex [B Complex-Vitamin B12] Tablet 1 tab PO DAILY cholecalciferol (vitamin D3) 50 mcg (2,000 unit) capsule 50 mcg PO DAILY Fiber Gummies 2 gram tablet,chewable PO DAILY thiamine HCl (vitamin B1) 100 mg tablet 100 mg PO DAILY cannabidiol 100 mg/mL solution PO DAILY levothyroxine [Euthyrox] 75 mcg tablet 75 mcg PO DAILY Qty: 90 3RF thyroid (pork) 60 mg tablet 60 mg PO DAILY Qty: 90 3RF estradiol [Brianna] 0.1 mg/24 hr patch semiweekly See Rx Instructions .ROUTE .COMPLEX Qty: 24 3RF Dose Instruction: APPLY 1 PATCH TOPICALLY TWICE A WEEK Rx Instructions: APPLY 1 PATCH TOPICALLY TWICE A WEEK fluconazole 150 mg tablet 150 mg PO Q3D Qty: 2 2RF Referrals Follow up/Referrals: Leandro Rapp MD [Primary Care Provider] - See instructions Activity Restrictions/Add. Instructions Additional Instructions/Restrictions: Please keep your follow-up with Dr. Rapp as previously instructed and return to the emergency part with any worsening symptoms. Clinical Impressions Clinical Impression: Abdominal pain, Yeast infection Instructions Patient Instructions: DI for Acute Abdominal Pain Discharge ED Provider: Tyrell Bull General Adult HPI <Tyrell Bull MD - Last Filed: 02/25/23 15:17> General Chief complaint: Abdominal Pain Stated complaint: diarrhea - stomach pain Time Seen by Provider: 02/25/23 12:51 Mode of Arrival: Ambulatory Source of Information: Patient Limitations: No Limitations Description of Symptoms (Recalled from ER Triage Doc. by RN): Pt reports abd pain for approx 3 weeks, states has been seen by her GI doctor, had and u/s and MRI. Pt reports her GI doctor was concerned about a blocked bile duct, states tests were negative. Pt reports generalized abd pain, diarrhea, nausea and yeast infection that she has done 3 rounds of treatment for with no improvement. History of Present Illness HPI narrative: I assumed care from urgent treatment center at approximately 2:20 PM. History is obtained by patient at bedside. Patient has a history of subacute abdominal pain that is reportedly been evaluated by gastroenterology with recent MRI showing no acute findings. Patient is status post previous cholecystectomy. Previous hysterectomy. She has vague bilateral upper quadrant abdominal pain, relieved with pressure in the right upper quadrant. Patient states she also had a right upper quadrant ultrasound which was normal. She is on a -gliflozin and and has had frequent yeast infections for which she states she is currently symptomatic with white discharge. There is associated nausea however no vomiting. No other acute complaints at this time. Previous diagnostic abdominal MRI and abdominal ultrasound show 7 mm common bile duct status postcholecystectomy with no acute findings. Related Data Home Medications Medication Instructions Recorded Confirmed glipizide 10 mg tablet, extended 10 mg PO 06/30/20 08/30/22 release 24 hr dextroamphetamine-amphetamine ER cap PO 08/20/21 08/30/22 15 mg 24hr capsule,extend release cannabidiol 100 mg/mL oral solution PO DAILY 08/31/22 08/31/22 cholecalciferol (vitamin D3) 50 50 mcg PO DAILY 08/31/22 mcg (2,000 unit) capsule dicyclomine 10 mg capsule 10 mg PO BID PRN 08/31/22 inulin 2 gram chewable tablet g PO DAILY 08/31/22 (Fiber Gummies) [id number]-ptibmav 1 cap P
[2023-02-25 14:30] VITALS: BP 180/92; PULSE 68; RESP 18; O2SAT 98
[2023-02-25 15:00] VITALS: BP 159/84; PULSE 73; RESP 18; O2SAT 98
[2023-02-25 15:04] LABS: Basophils # 0.1 K/mm3 (0-0.2); Basophils % 0.9 % (0.1-2.0); Eosinophils # 0.2 K/mm3 (0.0-0.4); Eosinophils % 3.1 % (0.1-12.0); Hematocrit 45.7 % (37.0-47.0); Hemoglobin 15.4 g/dL (12.2-16.2); Lymphocytes # 2.4 K/mm3 (0.7-4.5); Lymphocytes % 36.6 % (10-50); Mean Corpuscular HGB Conc 33.6 g/dL (31.8-35.4); Mean Corpuscular Hemoglobin 30.1 pg (27.0-31.2); Mean Corpuscular Volume 89.5 fl (81-99); Mean Platelet Volume 8.6 fl (7.4-10.4); Monocytes # 0.4 K/mm3 (0.1-1.0); Monocytes % 6.2 % (1.7-9.3); Neutrophils # 3.5 K/mm3 (1.8-7.8); Neutrophils % 53.2 % (37.0-80.0); Platelet Count 222 K/mm3 (142-424); Red Blood Count 5.11 M/mm3 (4.20-5.40); White Blood Count 6.5 K/mm3 (4.8-10.8)
[2023-02-25 15:09] LABS: Alanine Aminotransferase 82 U/L (12-78); Albumin Level 4.8 g/dl (3.5-5.0); Albumin/Globulin Ratio 1.3 (1.1-1.8); Alkaline Phosphatase 184 U/L (38-126); Aspartate Amino Transferase 79 U/L (14-36); Bilirubin,Total 0.9 mg/dl (0.2-1.3); Blood Urea Nitrogen 10 mg/dl (7-17); Calcium 9.4 mg/dl (8.4-10.2); Carbon Dioxide 25 mmol/L (22.0-30.0); Chloride 107 mmol/L (98-107); Creatinine Clearance Estimated 138 mL/min (50-200); Estimated Glomerular Filt Rate 88 ml/min (>60); GFR (African American) 107 ML/MIN (>60); Globulin 3.7 g/dL (1.3-3.2); Glucose 163 mg/dl (74-100); Lipase 163 U/L (23-300); Sodium 141 mmol/L (136-145); Total Protein,Serum 8.5 g/dl (6.3-8.2)
[2023-02-25 15:30] VITALS: BP 147/81; PULSE 78; RESP 16; O2SAT 96
--- NOTE | 2023-02-25 15:47 | PC.NURSE ---
PATIENT ASSISTED TO THE BATHROOM
[2023-02-25 15:57] LABS: Microscopic, Urine URINE MICROSCOPIC (MICROSCOPIC)
--- NOTE | 2023-02-25 15:59 | PC.NURSE ---
Urine sample obtained and sent to lab
[2023-02-25 16:19] LABS: Appearance,Urine CLEAR (Clear); Bilirubin,Urine Negative (Negative); Blood, Urine Negative (Negative); Glucose,Urine (UA) Negative (Negative); Ketones,Urine TRACE (Negative); Leukocyte Esterase,Urine Negative (Negative); Nitrate,Urine Negative (Negative); PH,Urine 5.5 (5.0-8.5); Protein,Urine Negative (Negative); Urobilinogen,Urine 0.2 EU/dl (0.2)
[2023-02-25 16:22] LABS: Color,Urine Straw (Yellow)
[2023-02-25 16:33] LABS: Bacteria,Urine Trace /lpf
[2023-02-25 17:11] VITALS: BP 151/95; PULSE 69; RESP 16; TEMP 36.6; O2SAT 97
[2023-05-01 11:55] LABS: POC Glucose,Bedside 159 (70-110)
== END 2023-02-25 17:11 | disposition home or self-care (01) ==
LOC: UTC 12:37 → ER 13:37
PROVIDERS: Emergency Provider Emergency Medicine; PCP Family Medicine
DX: R10.11 Right upper quadrant pain (principal); R10.12 Left upper quadrant pain; R19.7 Diarrhea, unspecified; R11.0 Nausea; B37.31 Acute candidiasis of vulva and vagina
CPT/HCPCS: 80053; 81001; 82962; 83690; 85025; 96361; 96374; 96375; 99285; J2405

== ENCOUNTER → 2023-07-25 09:50 | Outpatient (CLI) | payer BC, SELFPAY ==
--- NOTE | 2023-07-25 09:51 | MM_ITS ---
PROCEDURE INFORMATION: Exam: MG Bilateral Screening 3D Mammography Exam date and time: 07/25/2023 9:56 AM Age: 53 years old Clinical indication: Screening. Her mother had breast cancer in her 50s and paternal great aunts and paternal cousins had breast cancer. TECHNIQUE: Imaging protocol: Bilateral Screening tomosynthesis and 2D mammography including computer-aided detection (CAD) when performed. COMPARISON: No relevant prior studies available. If prior mammograms are provided, I am happy to add an addendum. FINDINGS: MAMMOGRAPHY: Breast composition: There are scattered areas of fibroglandular density. Mass: Questionable 0.3 cm oval mass in the right upper outer quadrant 3-4 cm from the nipple. Architectural distortion: None. Calcifications: No suspicious calcifications. Asymmetric density: None. Skin thickening: None. Axillary adenopathy: None. Other: Left biopsy clip. IMPRESSION: Comparison to prior mammograms will be most helpful. These are not provided within 2 weeks, patient will be recalled for right sonography for further evaluation questionable right breast mass. ASSESSMENT: BI-RADS Category 0: Incomplete- Need Additional Imaging Evaluation and/or Prior Mammograms for Comparison
== END ==
PROVIDERS: PCP Family Medicine; Visit Provider Nurse Practitioner Obstetrics & Gynecology
DX: Z12.31 Encounter for screening mammogram for malignant neoplasm of breast (principal)
CPT/HCPCS: 77063; 77067

== ENCOUNTER → 2023-08-02 10:47 | Outpatient (CLI) | payer BC, SELFPAY ==
--- NOTE | 2023-08-02 10:47 | US_ITS ---
PROCEDURE INFORMATION: Exam: US Right Breast, Complete Exam date and time: 08/02/2023 11:01 AM Age: 53 years old Clinical indication: Patient recalled for further evaluation of a right breast mass TECHNIQUE: Imaging protocol: Complete ultrasound of all four quadrants of the right breast and the retroareolar regions, including ultrasound of the axilla when performed. COMPARISON: MG MM DIG SCREENING MAMM BI W/CAD 07/25/2023 9:56 AM FINDINGS: Breast: Sonographic images of the right breast including the retroareolar region, all 4 quadrants and the axilla do not demonstrate any solid or cystic masses. Cursors were placed over normal fibroglandular structures in the upper outer quadrant. No architectural distortion or acoustical shadowing. No skin thickening or axillary adenopathy. IMPRESSION: 0.3 cm superficial mass in the right 9-10 o'clock axis on mammography is not seen on sonography. The finding is most likely benign. A six-month follow-up diagnostic right mammogram is recommended to ensure stability of the pattern identified ASSESSMENT: BI-RADS Category 3: Probably benign
== END ==
PROVIDERS: PCP Family Medicine; Visit Provider Obstetrics & Gynecology
DX: R92.8 Other abnormal and inconclusive findings on diagnostic imaging of breast (principal)
CPT/HCPCS: 76641

== ENCOUNTER 2023-09-04 15:16 | Outpatient (CLI) | payer BC, SELFPAY ==
[2023-09-04 15:40] LABS: Basophils # 0.1 K/mm3 (0-0.2); Basophils % 0.9 % (0.1-2.0); Eosinophils # 0.2 K/mm3 (0.0-0.4); Eosinophils % 2.4 % (0.1-12.0); Hematocrit 47.3 % (37.0-47.0); Hemoglobin 16.1 g/dL (12.2-16.2); Lymphocytes # 3.2 K/mm3 (0.7-4.5); Lymphocytes % 37.9 % (10-50); Mean Corpuscular HGB Conc 33.9 g/dL (31.8-35.4); Mean Corpuscular Hemoglobin 30.5 pg (27.0-31.2); Mean Platelet Volume 7.9 fl (7.4-10.4); Monocytes # 0.4 K/mm3 (0.1-1.0); Monocytes % 4.7 % (1.7-9.3); Neutrophils # 4.6 K/mm3 (1.8-7.8); Platelet Count 235 K/mm3 (142-424); Red Blood Count 5.26 M/mm3 (4.20-5.40); Red Cell Distribution Width 13.2 % (11.5-17.5); White Blood Count 8.4 K/mm3 (4.8-10.8)
[2023-09-04 16:31] LABS: Alanine Aminotransferase 21 U/L (12-78); Albumin Level 4.6 g/dl (3.5-5.0); Albumin/Globulin Ratio 1.5 (1.1-1.8); Alkaline Phosphatase 113 U/L (38-126); Anion Gap 12.1 mEq/L (5-15); Aspartate Amino Transferase 25 U/L (14-36); Bilirubin,Total 1.2 mg/dl (0.2-1.3); Blood Urea Nitrogen 8 mg/dl (7-17); Calcium 9.2 mg/dl (8.4-10.2); Carbon Dioxide 27 mmol/L (22.0-30.0); Chloride 105 mmol/L (98-107); Cholesterol 207 mg/dl (140-200); Estimated Glomerular Filt Rate 66 ml/min (>60); GFR (African American) 80 ML/MIN (>60); Glucose 95 mg/dl (74-100); Potassium 4.1 mmoL/L (3.5-5.1); Sodium 140 mmol/L (136-145); Total Protein,Serum 7.6 g/dl (6.3-8.2)
[2023-09-04 22:23] LABS: Thyroid Stimulating Hormone 0.16 uIU/mL (0.465-4.68)
[2023-09-05 09:24] LABS: Estradiol 25.3 pg/mL (.); FSH 33.8 mIU/mL (.); LH 31.1 mIU/mL (.)
[2023-09-12 19:37] LABS: 1,25 Dihydroxy Vitamin D 52 pg/mL (.); 1,25-Dihydroxy, Vitamin D-2 <10 pg/mL (.); 1,25-Dihydroxy, Vitamin D-3 52 pg/mL (.)
== END 2023-09-04 23:59 ==
LOC: LAB 15:16
PROVIDERS: PCP Family Medicine; Visit Provider Nurse Practitioner Obstetrics & Gynecology
DX: Z01.419 Encounter for gynecological examination (general) (routine) without abnormal findings (principal); Z79.899 Other long term (current) drug therapy
CPT/HCPCS: 36415; 80053; 82465; 82652; 82670; 83001; 83002; 84443; 85025

== ENCOUNTER 2024-02-01 13:58 | Outpatient (CLI) | payer BC, SELFPAY ==
--- NOTE | 2024-02-01 13:59 | MM_ITS ---
PROCEDURE INFORMATION: Exam: MG Right Diagnostic Breast Tomosynthesis Exam date and time: 02/01/2024 1:58 PM Age: 53 years old Clinical indication: Short-term radiographic followup; right breast mass TECHNIQUE: Imaging protocol: Right Diagnostic tomosynthesis and 2D mammography including computer-aided detection (CAD) when performed. Unilateral or bilateral exam. COMPARISON: 1. MG MM DIG SCREENING MAMM BI W/CAD 07/25/2023 9:56 AM 2. MG MM DIG SCREENING MAMM BI W/CAD 07/27/2020 10:01 AM FINDINGS: MAMMOGRAPHY: Breast composition: There are scattered areas of fibroglandular density. Breast mammogram findings: There is no stellate mass, architectural distortion or suspicious microcalcifications to suggest malignancy. Stable superficial 0.3 cm mass in the right lateral breast best seen in the craniocaudal projection No skin thickening or axillary adenopathy. IMPRESSION: Stable probably benign 0.3 cm mass in the right lateral breast compared to prior mammogram dated 07/25/2023. A six-month follow-up diagnostic bilateral mammogram is recommended for continued close surveillance the right-sided masses well as part of an annual screening schedule ASSESSMENT: BI-RADS Category 3: Probably benign.
== END 2024-02-01 23:59 | disposition home or self-care (01) ==
LOC: RAD 13:59
PROVIDERS: PCP Family Medicine; Visit Provider Obstetrics & Gynecology
DX: R92.8 Other abnormal and inconclusive findings on diagnostic imaging of breast (principal)
CPT/HCPCS: 77061; 77065; G0279

== ENCOUNTER 2024-09-03 14:39 | Outpatient (CLI) | payer BC, MEDICAID, SELFPAY ==
--- NOTE | 2024-09-03 14:45 | MM_ITS ---
PROCEDURE INFORMATION: Exam: MG Bilateral Screening 3D Mammography Exam date and time: 09/03/2024 2:32 PM Age: 54 years old Clinical indication: Screening examination TECHNIQUE: Imaging protocol: Bilateral Screening tomosynthesis and 2D mammography including computer-aided detection (CAD) when performed. COMPARISON: 1. MG MM DIG MAMM DX UNILAT RT CAD 02/01/2024 1:58 PM 2. MG MM DIG SCREENING MAMM BI W/CAD 07/25/2023 9:56 AM FINDINGS: MAMMOGRAPHY: Breast composition: There are scattered areas of fibroglandular density. Mass: None. Architectural distortion: None. Calcifications: No suspicious calcifications. Asymmetric density: None. Skin thickening: None. Axillary adenopathy: None. IMPRESSION: No mammographic evidence of malignancy. Annual screening is recommended unless otherwise clinically indicated. ASSESSMENT: BI-RADS Category 1: Negative.
== END 2024-09-03 23:59 | disposition home or self-care (01) ==
LOC: RAD 14:41
PROVIDERS: PCP Family Medicine; Visit Provider Obstetrics & Gynecology
DX: Z12.31 Encounter for screening mammogram for malignant neoplasm of breast (principal)
CPT/HCPCS: 77063; 77067

== ENCOUNTER 2024-09-04 13:55 | Outpatient (CLI) | payer BC, MEDICAID, SELFPAY ==
[2024-09-04 14:22] LABS: Basophils # 0.1 K/mm3 (0-0.2); Basophils % 1.1 % (0.1-2.0); Eosinophils # 0.1 K/mm3 (0.0-0.4); Eosinophils % 0.8 % (0.1-12.0); Hematocrit 46.6 % (37.0-47.0); Hemoglobin 15.5 g/dL (12.2-16.2); Lymphocytes # 2.6 K/mm3 (0.7-4.5); Mean Corpuscular HGB Conc 33.3 g/dL (31.8-35.4); Mean Corpuscular Hemoglobin 30.2 pg (27.0-31.2); Mean Corpuscular Volume 90.8 fl (81-99); Mean Platelet Volume 10.2 fl (7.4-10.4); Monocytes # 0.5 K/mm3 (0.1-1.0); Monocytes % 6.1 % (1.7-9.3); Neutrophils # 5.3 K/mm3 (1.8-7.8); Neutrophils % 61.9 % (37.0-80.0); Platelet Count 254 K/mm3 (142-424); Red Blood Count 5.13 M/mm3 (4.20-5.40); Red Cell Distribution Width 11.9 % (11.5-17.5); White Blood Count 8.5 K/mm3 (4.8-10.8)
[2024-09-04 14:57] LABS: Alanine Aminotransferase 16 U/L (12-78); Albumin Level 4.6 g/dl (3.5-5.0); Albumin/Globulin Ratio 1.8 (1.1-1.8); Alkaline Phosphatase 105 U/L (38-126); Anion Gap 12.6 mEq/L (5-15); Aspartate Amino Transferase 24 U/L (14-36); Bilirubin,Total 1.1 mg/dl (0.2-1.3); Blood Urea Nitrogen 13 mg/dl (7-17); Calcium 9.8 mg/dl (8.4-10.2); Carbon Dioxide 27 mmol/L (22.0-30.0); Chloride 104 mmol/L (98-107); Chol/HDL Ratio 3.1 (1-3.5); Cholesterol 168 mg/dl (140-200); Estimated Glomerular Filt Rate 75 ml/min (>60); GFR (African American) 91 ML/MIN (>60); Globulin 2.6 g/dL (1.3-3.2); Glucose 81 mg/dl (74-100); HDL Cholesterol 54 mg/dl (40-60); Potassium 4.6 mmoL/L (3.5-5.1); Sodium 139 mmol/L (136-145); Total Protein,Serum 7.2 g/dl (6.3-8.2); Triglycerides 85 mg/dl (30-150); VLDL Cholesterol 17 mg/dL (0-40)
[2024-09-04 15:08] LABS: Direct LDL Cholesterol 78.34 mg/dL (100-129)
[2024-09-04 15:14] LABS: 25-OH Vitamin D, Total 79.2 ng/mL (30-100)
[2024-09-04 20:02] LABS: Free Thyroxine Index 3.5 ug/dL (5.93-13.13); T4 (Thyroxine) 11.2 ug/dl (5.53-11.0); Triiodothryronine (T3) Uptake 31 % (23.5-40.5)
[2024-09-04 20:16] LABS: Thyroid Stimulating Hormone 4.82 uIU/mL (0.465-4.68)
== END 2024-09-04 23:59 | disposition home or self-care (01) ==
LOC: LAB 13:56
PROVIDERS: PCP Internal Medicine Adolescent Medicine; Visit Provider Nurse Practitioner Obstetrics & Gynecology
DX: Z01.419 Encounter for gynecological examination (general) (routine) without abnormal findings (principal); E07.9 Disorder of thyroid, unspecified
CPT/HCPCS: 36415; 80053; 80061; 82306; 84436; 84443; 84479; 85025